=== PATIENT | male | born 1950 | race Caucasian/White ===

== ENCOUNTER 2024-06-19 20:37 | Inpatient (IN) | payer OTHER ==
[2024-06-19 21:12] LABS: Absolute Lymphocytes (CBC) 0.5 K/uL (0.7-4.9); Absolute Monocytes 0.6 K/uL (0.1-1.3); Absolute Neutrophil 5.3 K/uL (1.8-8.0); Basophils % 0.2 % (0-1.3); Hematocrit 40.4 % (39.6-49.0); Hemoglobin 13.4 g/dL (13.6-17.9); Lymphocytes % 7.5 % (15.3-44.8); MCH 30.7 pg (27.0-35.0); MCHC 33.1 g/dL (32.0-36.0); MCV 92.6 fL (80-100); MPV 9.7 fL (7.6-11.3); Neutrophils % 82.3 % (41.7-73.7); Nucleated Red Blood Cells % 0.2 % (0-0); Platelets 124 thou/uL (152-406); RBC Red Blood Cell Count 4.37 M/uL (4.33-5.43); Red Cell Distribution Width 13.4 % (12.1-15.2)
[2024-06-19 21:26] LABS: PT Prothrombin Time 14.7 SECONDS (9.4-12.5); PTT, Activated Partial Thromb 31.6 SECONDS (24.3-36.9); Protime INR 1.32
[2024-06-19 21:29] LABS: Albumin 3.2 g/dL (3.4-5.0); Albumin/Globulin Ratio 0.8 (1.1-1.8); Anion Gap 10.5 mEq/L (5.0-15.0); Bilirubin Total 0.8 mg/dL (0.2-1.0); Globulin 3.8 g/dL (2.3-3.5); Potassium 3.5 mEq/L (3.5-5.1)
[2024-06-19 21:47] LABS: SARS-CoV-2 Antigen CONTROL BLUE LINE VIS/BG OK; SARS-CoV-2 Antigen Rapid Res Negative (Negative)
--- NOTE | 2024-06-19 21:52 | RAD REPORT ---
[facility]23 [facility] CLINICAL HISTORY: fevr COMPARISON: CHEST SINGLE VIEW dated 09/05/2009 TECHNIQUE: Portable AP view of the chest. FINDINGS: The lungs are clear. Elevation of the left hemidiaphragm again seen. No pneumothorax or ef fusion. The cardiomediastinal contours are unremarkable. IMPRESSION: No acute cardiopulmonary process.
[2024-06-19] MEDS ORDERED: VANCOMYCIN 1 GM/VIAL ONE (22:14)
--- NOTE | 2024-06-19 22:14 | ER ---
Nurse's Notes [facility] Name: Roverto Holly Age: 74 yrs Sex: Male : 1950 Arrival Date: 06/19/2024 Time: 20:37 Bed 4 Private MD: Adam Brooks B Diagnosis: Cellulitis of right lower limb;Altered mental status, unspecified Presentation: 06/19 20:50 Chief complaint: Spouse and/or significant other states: increased confusion kl incontinent of urine right lower extremity swelling and redness. Coronavirus screen: Vaccine status: Patient reports being unvaccinated. Ebola Screen: Patient negative for fever greater than or equal to 101.5 degrees Fahrenheit, and additional compatible Ebola Virus Disease symptoms. Initial Sepsis Screen: Does the patient meet any 2 criteria? Altered Mental Status. Yes Does the patient have a suspected source of infection? If YES to both, name of provider notified: Boni Brandon MD. Risk Assessment: Do you want to hurt yourself or someone else? Patient reports no desire to harm self or others. Onset of symptoms is unknown. 20:50 Method Of Arrival: Ambulatory kl 20:50 Acuity: AKILAH 3 kl 20:55 Note code sepsis called. Triage Assessment: 20:53 General: Appears uncomfortable, unkempt, Behavior is calm, cooperative. EENT: No kl deficits noted. Derm: swelling and redness to right lower extremity. Historical: - Allergies: 20:53 PENICILLINS; kl - Home Meds: 20:53 donepezil oral [Active]; kl - PMHx: 20:53 Alzheimer's disease; Hypertensive disorder; Myocardial infarction; kl - PSHx: 20:53 None; kl - Immunization history:: Adult Immunizations not immunized. - Infectious Disease History:: Denies. - Social history:: Smoking status: Patient denies any tobacco usage or history of. - Family history:: not pertinent. - Hospitalizations: : No recent hospitalization is reported. Screenin:00 [facility] ED Fall Risk Assessment (Adult) History of falling in the last 3 months, al5 including since admission No falls in past 3 months (0 pts) Confusion or Disorientation Yes (5 pts) Intoxicated or Sedated No (0 pts) Impaired Gait Yes (1 pt) Mobility Assist Device Used Yes (1 pt) Altered Elimination Yes (1 pt) Score/Fall Risk Level 3 or more points = High Risk Oriented to surroundings, Maintained a safe environment, Educated pt \T\ family on fall prevention, incl call for assistance when getting out of bed, Assessed \T\ reinforced patient's understanding of fall precautions, Provided non-skid footwear, Hourly rounding (assess needs \T\ fall precautionary measures) done. Abuse screen: Denies threats or abuse. Nutritional screening: No deficits noted. Tuberculosis screening: No symptoms or risk factors identified. Assessment: 20:50 General: Appears in no apparent distress. comfortable, Behavior is calm, cooperative. al5 20:50 Pain: Denies pain. Neuro: Level of Consciousness is awake, alert, obeys commands, al5 Oriented to person, place. Cardiovascular: Denies chest pain, Capillary refill < 3 seconds Patient's skin is warm and dry. Respiratory: Airway is patent Trachea midline Respiratory effort is even, unlabored, Respiratory pattern is regular, symmetrical. GI: Abdomen is flat, non-distended, Abd is soft and non tender X 4 quads. : Reports incontinence. EENT: No deficits noted. Derm: Skin is intact, Skin is dry, Skin is normal, Skin temperature is warm. Musculoskeletal: Swelling present in right leg. 21:30 Reassessment: Patient and/or family updated on plan of care and expected duration. Pain rg5 level reassessed. Patient is alert, oriented x 3, equal unlabored respirations, skin warm/dry/pink. 22:30 Reassessment: No changes from previously documented assessment. rg5 23:45 Reassessment: No changes from previously documented assessment. rg5 Vital Signs: 20:50 BP 181 / 92; Pulse 88; Resp 18; Temp 100.6(O); Pulse Ox 95% on R/A; kl 21:00 BP 163 / 101; Pulse 79; Resp 19; Temp 100.1(O); Pulse Ox 100% on R/A; al5 23:35 BP 156 / 67; Pulse 78; Resp 18; Temp 98.4(O); Pulse Ox 99% ; Pain 0/10; rg5 23:35 Pain Scale: Adult rg5 ED Course: 20:38 Patient arrived in ED. am2 20:39 Adam Brooks MD is Private Physician. am2 20:41 Boni Brandon MD is Attending Physician. rn 20:53 Triage completed. kl 21:00 Awaiting lab results. al5 21:00 Patient has correct armband on for positive identification. Fall risk band placed. al5 Placed in gown. Bed in low position. Call light in reach. Side rails up X2. Adult w/ patient. 21:00 Arm band placed on right wrist. EKG completed in triage. Results shown to MD. rg5 21:00 No provider procedures requiring assistance completed. Inserted saline lock: 20 gauge al5 in right antecubital area, using aseptic technique. 21:00 Inserted saline lock: Blood collected. Flushed with 10 mL NS. al5 21:24 Chest Single View XRAY In Process Unspecified. EDMS 21:24 Misa Pedroza, RADHA is Primary Nurse. al5 22:12 Erasmo Fernandez MD is Hospitalizing Provider. rn 23:00 Awaiting bed assignment. rg5 06/20 00:11 Urinalysis w/ reflexes Sent. rg5 00:15 Flushed right antecubital saline lock Patient admitted, IV remains in place. intact, No rg5 redness/swelling at site. 00:16 Provided Education on: need for admit. rg5 Administered Medications: 06/19 22:15 Drug: vancoMYCIN IVPB 1 grams IVPB once over 2 hrs Route: IVPB; Infused Over: 2 hrs; al5 Site: right antecubital; 06/20 00:00 Follow up: Response: No adverse reaction; IV Status: Completed infusion rg5 Medication: 06/19 21:00 VIS not applicable for this client. al5 Outcome: 22:13 Decision to Hospitalize by Provider. rn 06/20 00:16 Admitted to Med/surg accompanied by nurse, via stretcher, rg5 Condition: stable Instructed on the need for admit, 01:02 Patient left the ED. ha1 Signatures: Dispatcher [employer] EDMS Mita Donaldson RN RN kl Nieto, Roman, MD MD rn Moreno, Amanda am2 Millicent Yo RN RN ha1 Luis Enrique York RN RN rgMisa Sibley RN RN al
--- NOTE | 2024-06-19 22:14 | EDPHYS ---
Physician Documentation [facility] Name: Roverto Holly Age: 74 yrs Sex: Male : 1950 Arrival Date: 06/19/2024 Time: 20:37 Bed 4 Private MD: Adam Brooks B ED Physician Boni Brandon HPI: 06/19 20:53 This 74 yrs old Male presents to ER via Ambulatory with complaints of confusion, rn Urinary Problem, Leg Swelling. 20:53 The patient presents with agitation, confusion, disorientation. Onset: The rn symptoms/episode began/occurred yesterday. Possible causes: unknown. Current symptoms: In the emergency department the patient's symptoms are unchanged from the initial presentation. The patient has not experienced similar symptoms in the past. Family member reports altered mental status, fever, red right lower extremity. Has had bouts of cellulitis in the past. No known trauma. Patient is exhibiting disorientation and agitation. No head injury.. Historical: - Allergies: 20:53 PENICILLINS; kl - Home Meds: 20:53 donepezil oral [Active]; kl - PMHx: 20:53 Alzheimer's disease; Hypertensive disorder; Myocardial infarction; kl - PSHx: 20:53 None; kl - Immunization history:: Adult Immunizations not immunized. - Infectious Disease History:: Denies. - Social history:: Smoking status: Patient denies any tobacco usage or history of. - Family history:: not pertinent. - Hospitalizations: : No recent hospitalization is reported. ROS: 20:53 Constitutional: Positive for fever Eyes: Negative for injury, pain, redness, and rn referral, Cardiovascular: Negative for chest pain, palpitations, and edema, Respiratory: Negative for shortness of breath, cough, wheezing, and pleuritic chest pain, Abdomen/GI: Negative for abdominal pain, nausea, vomiting, diarrhea, and constipation, : Positive for increase in urination MS/Extremity: Negative for injury and deformity, Skin: Positive for erythema and warmth to the right lower extremity Neuro: Negative for headache, weakness, numbness, tingling, and seizure, Exam: 20:53 Constitutional: This is a well developed, well nourished patient who is awake, alert, rn and in no acute distress. Head/Face: Normocephalic, atraumatic. ENT: Dry mucous membranes Cardiovascular: Regular rate and rhythm. No pulse deficits. Respiratory: No increased work of breathing, no retractions or nasal flaring. Abdomen/GI: Soft, non-tender MS/ Extremity: No cyanosis. Right lower extremity with erythema and warmth that begins at the right foot and extends just proximal to the right knee. No fluctuance. No desquamation. Neuro: Awake and alert, GCS 15, oriented to person, place, not time. Cranial nerves II-XII grossly intact. Motor strength 4/5 in all extremities. Sensory grossly intact. 21:07 ECG was reviewed by the Attending Physician. rn Vital Signs: 20:50 BP 181 / 92; Pulse 88; Resp 18; Temp 100.6(O); Pulse Ox 95% on R/A; kl 21:00 BP 163 / 101; Pulse 79; Resp 19; Temp 100.1(O); Pulse Ox 100% on R/A; al5 23:35 BP 156 / 67; Pulse 78; Resp 18; Temp 98.4(O); Pulse Ox 99% ; Pain 0/10; rg5 23:35 Pain Scale: Adult rg5 MDM: 20:41 Patient medically screened. rn 22:11 Differential Diagnosis: electrolyte abnormality, hypoglycemia, pneumonia, UTI, volume rn depletion, cellulitis. Data reviewed: vital signs, nurses notes, lab test result(s), radiologic studies, plain films, and as a result, I will admit patient. Consideration of Admission/Observation Patient was admitted/placed on observation. Escalation of care including admission/observation considered. Independent interpretation of the following test(s) in the Emergency Department EKG: See my EKG interpretation above X-Ray: My interpretation is Chest x-ray images negative for pneumonia per my interpretation. Care significantly affected by the following chronic conditions: Hypertension. Counseling: I had a detailed discussion with the patient and/or guardian regarding the historical points, exam findings, and any diagnostic results supporting the discharge/admit diagnosis, lab results, radiology results, the need for further work-up and treatment in the hospital. ED course: Patient with altered mental status, most likely due to cellulitis. Does not meet severe sepsis criteria. Lactic acid normal. Antibiotics ordered. Will admit to hospitalist service for cellulitis and altered mental status.. 06/19 20:51 Order name: Blood Culture Adult (2) rn 06/19 20:51 Order name: CBC with Diff; Complete Time: 22: rn 06/19 20:51 Order name: CMP; Complete Time: 22: rn 06/19 20:51 Order name: Lactate w/ 2H reflex if indic.; Complete Time: 22:06/19 20:51 Order name: Protime (+inr); Complete Time: 22: 06/19 20:51 Order name: Ptt, Activated; Complete Time: 22: rn 06/19 20:51 Order name: Urinalysis w/ reflexes rn 06/19 20:51 Order name: SARS RAPID; Complete Time: 22: rn 06/19 20:51 Order name: Flu; Complete Time: 22: rn 06/19 22:51 Order name: Urinalysis w/ reflexes EDMS 06/19 22:52 Order name: CBC with Automated Diff EDMS 06/19 22:52 Order name: CBC with Automated Diff EDMS 06/19 22:52 Order name: Comprehensive Metabolic Panel EDOH 06/19 22:52 Order name: Comprehensive Metabolic Panel [facility] 06/19 20:51 Order name: Chest Single View XRAY; Complete Time: 22:06/19 20:51 Order name: Accucheck; Complete Time: 21:06/19 20:51 Order name: Cardiac monitoring; Complete Time: 21:06/19 20:51 Order name: EKG - Nurse/Tech; Complete Time: 21:06/19 20:51 Order name: IV Saline Lock - Large Bore; Complete Time: 21:24 06/19 20:51 Order name: Labs collected and sent; Complete Time: 21:06/19 20:51 Order name: O2 Per Protocol; Complete Time: 21:06/19 20:51 Order name: O2 Sat Monitoring; Complete Time: 21:06/19 20:51 Order name: Vital Signs; Complete Time: 21:24 rn EC: Rate is 92 beats/min. Rhythm is irregular. Right axis deviation noted. QRS is positive rn in lead aVF and negative in lead I. QRS interval is prolonged. QT interval is normal. No Q waves. T waves are Normal. No ST changes noted. Clinical impression: NSR w/ Non-specific ST/T Changes. Interpreted by me. Reviewed by me. Administered Medications: 22:15 Drug: vancoMYCIN IVPB 1 grams IVPB once over 2 hrs Route: IVPB; Infused Over: 2 hrs; al5 Site: right antecubital; 06/20 00:00 Follow up: Response: No adverse reaction; IV Status: Completed infusion rg5 Disposition Summary: 06/19/24 22:13 Hospitalization Ordered Notes: Hospitalization Status: Inpatient Admission rn Provider: Erasmo Fernandez rn Location: Telemetry/MedSurg (Inpatient) rn Condition: Stable rn Problem: new rn Symptoms: have improved rn Bed/Room Type: Standard rn Room Assignment: 231(06/19/24 23:37) kl Diagnosis - Cellulitis of right lower limb rn - Altered mental status, unspecified rn Forms: - Medication Reconciliation Form rn - SBAR form rn - Leadership Thank You Letter rn Signatures: Dispatcher [employer] EDMS Mita Donaldson RN RN kl Nieto, Roman, MD MD rn Langhorst, Amanda, RN RN alLuis Enrique Jansen RN rg5 Corrections: (The following items were deleted from the chart) 06/19 20:52 20:52 BLOOD CULTURE*+BA.LAB.BRZ ordered. EDMS EDMS 20:52 20:52 CBC+H.LAB.BRZ ordered. EDMS EDMS 20:52 20:52 COMPREHENSIVE METABOLIC PANEL+C.LAB.BRZ ordered. EDMS EDMS 20:52 20:52 LACTATE+C.LAB.BRZ ordered. EDMS EDMS 20:52 20:52 PROTIME (+INR)+COAG.LAB.BRZ ordered. EDMS EDMS 20:52 20:52 PTT, ACTIVATED+COAG.LAB.BRZ ordered. EDMS EDMS 20:52 20:52 Urinalysis+U.LAB.BRZ ordered. EDMS EDMS 20:52 20:52 SARS-COV-2 Antigen Rapid+I.LAB.BRZ ordered. EDMS EDMS 20:52 20:52 Influenza Screen (A \T\ B)+BA.LAB.BRZ ordered. EDMS EDMS 20:52 20:52 Chest Single View+RAD.RAD.BRZ ordered. EDOH EDMS 23:37 22:13 sunni mancilla
[2024-06-19] MEDS ORDERED: NA CHLORIDE 0.9% 250 ML ONE (22:15)
--- NOTE | 2024-06-19 22:45 | P.HP ---
Certification for Inpatient Patient admitted to: Observation With expected LOS: <2 Midnights Practitioner: I am a practitioner with admitting privileges, knowledge of patient current condition, hospital course, and medical plan of care. Services: Services provided to patient in accordance with Admission requirements found in Title 42 Section 412.3 of the Code of Federal Regulations Patient History Date of Service: 06/20/24 Reason for admission: AMS/leg swelling History of Present Illness: 74 yrs old Male with past medical history of dementia, hypertension, CAD who was brought to ER with confusion and leg swelling and dysuria started yesterday and has been progressively worsening and was brought to ER. Patient had some agitation and confusion. Patient is a poor historian hence most of the history is obtained from the chart review and also talking to the ER physician. Family reported that he was having some confusion and some low-grade fever and red right lower extremity similar to his previous episodes of cellulitis in the past. Denies any trauma. No chest pain or shortness of breath. of cellulitis in the past. No known trauma. Patient is exhibiting disorie ntation and confusion. Patient was assessed in the ER and is admitted for altered mental status and right lower extremity cellulitis Allergies Penicillins Allergy (Unverified 06/20/24 01:17) unknown Home medications list reviewed: Yes - Past Medical/Surgical History Diabetic: Yes Past Medical History: Reviewed- Non-Contributory Past Surgical History: Reviewed- Non-Contributory - Family History Family History: Reviewed- Non-Contributory - Social History Smoking Status: Never smoker Review of Systems 10-point ROS is otherwise unremarkable Physical Examination - Vital Signs Temperature: 100.6 F Blood Pressure: 181/92 Pulse: 88 Respirations: 18 Pulse Ox (%): 94 - Physical Exam General: Alert, Demented, Confused HEENT: Atraumatic, Normocephalic Neck: Supple Respiratory: Clear to auscultation bilaterally, Normal air movement Cardiovascular: Regular rate/rhythm, Normal S1 S2 Capillary refill: <2 Seconds Gastrointestinal: Soft and benign, W/out hepatosplenomegaly Musculoskeletal: Erythema, Tenderness Integumentary: No rashes, Tenderness/swelling, Erythema Neurological: Normal strength at 5/5 x4 extr, Cranial nerves 3-12 intact, Normal reflexes 2+, Other (Alert, confused) Lymphatics: No axilla or inguinal lymphadenopathy - Studies Laboratory Data (last 24 hrs) 06/19/24 06/19/24 06/19/24 21:00 21:00 21:00 WBC 6.40 Hgb 13.4 L Hct 40.4 Plt Count 124 L PT 14.7 H INR 1.32 APTT 31.6 Sodium 132 L Potassium 3.5 BUN 21 H Creatinine 1.26 Glucose 141 H Total Bilirubin 0.8 AST 43 H ALT 44 Alkaline Phosphatase 108 Microbiology Data (last 24 hrs): 06/19/24 21:00 Nasopharnyx Influenza Type A Antigen Screen - Final 06/19/24 21:00 Nasopharnyx Influenza Type B Antigen Screen - Final Assessment and Plan - Problems (Diagnosis) (1) Acute encephalopathy Current Visit: Yes Status: Acute Plan: Acute encephalopathy possibly metabolic Patient has baseline dementia Possibly sundowning too Monitor neuro vital signs closely Will get a CT of the head if patient is still confused Dementia Continue home medications and titrate as needed Supportive management Right lower extremity cellulitis Started on antibiotics Will obtain cultures Accelerated hypertension Hydralazine as needed Continue home medications and titrate as needed Hyponatremia IV hydration Monitor closely UA negative for any UTI GI/DVT prophylaxis Advanced directive full code Discharge Plan: Home Plan to discharge in: 48 Hours - Advance Directives Does patient have a Living Will: No Does patient have a Durable POA for Healthcare: No - Code Status/Comfort Care Code Status: Full Code Time Spent Managing Pts Care (In Minutes): 48
[2024-06-19] MEDS ORDERED: ACETAMINOPHEN 325 MG TABLET PO PRN (22:46)
[2024-06-19] MEDS ORDERED: ONDANSETRON 4 MG/2 ML VIAL IV PRN (22:46)
[2024-06-19] MEDS ORDERED: NA CHLORIDE 0.9% 1,000 ML IV SCH (23:00)
[2024-06-20 00:53] LABS: Sqamous Epithelial <5 /HPF (None Seen); Urine Bacteria None Seen /HPF (<20); Urine Bilirubin NEGATIVE (Negative); Urine Blood 1+ (Negative); Urine Clarity Clear (Clear); Urine Color Yellow (Yellow); Urine Culture Reflex Order NOT NEEDED; Urine Glucose NEGATIVE (Negative); Urine Ketones 1+ (Negative); Urine Microscopic Reflex YN ORDER UMIC; Urine Mucus Slight /HPF (None Seen); Urine Nitrite NEGATIVE (Negative); Urine Protein 1+ (Negative); Urine RBC <5 /HPF (None Seen); Urine Urobilinogen 1+ (Normal); Urine WBC <5 /HPF (<5)
[2024-06-20 02:26] VITALS: BMI 23.5
[2024-06-20] MEDS ORDERED: HYDRALAZINE HCL 20 MG/ML VIAL IV PRN (05:27)
[2024-06-20 06:14] LABS: Absolute Lymphocytes (CBC) 0.6 K/uL (0.7-4.9); Absolute Monocytes 0.5 K/uL (0.1-1.3); Basophils % 0.2 % (0-1.3); Hemoglobin 12.7 g/dL (13.6-17.9); Lymphocytes % 12.6 % (15.3-44.8); MCH 31.4 pg (27.0-35.0); MCHC 34.4 g/dL (32.0-36.0); MCV 91.3 fL (80-100); MPV 10.1 fL (7.6-11.3); Monocytes % 9.7 % (3.3-12.3); Neutrophils % 77.5 % (41.7-73.7); Nucleated Red Blood Cells % 0.1 % (0-0); Platelets 114 thou/uL (152-406); RBC Red Blood Cell Count 4.05 M/uL (4.33-5.43); Red Cell Distribution Width 13.5 % (12.1-15.2)
[2024-06-20 06:26] LABS: Albumin 2.6 g/dL (3.4-5.0); Albumin/Globulin Ratio 0.7 (1.1-1.8); Anion Gap 11.2 mEq/L (5.0-15.0); Bilirubin Total 0.8 mg/dL (0.2-1.0); Globulin 3.6 g/dL (2.3-3.5); Potassium 3.2 mEq/L (3.5-5.1); Protein, Total 6.2 g/dL (6.4-8.2)
[2024-06-20] MEDS: CIPROFLOXACIN HCL 500 MG TAB PO SCH (08:47)
[2024-06-20] MEDS: DOXYCYCLINE 100 MG CAP PO SCH (08:47)
[2024-06-20] MEDS: POTASSIUM CL SA 10 MEQ TAB PO ONE (08:47)
--- NOTE | 2024-06-20 09:54 | RAD REPORT ---
EXAM DESCRIPTION: CT - Head Brain Wo Cont - 06/20/2024 8:09 am CLINICAL HISTORY: AMS COMPARISON: No comparisons TECHNIQUE: Noncontrast head CT images were obtained without IV contrast. Multiplanar reformats were generated and reviewed. All CT scans are performed using dose optimization technique as appropriate and may include automated exposure control or mA/KV adjustment according to patient size. FINDINGS: No intracranial hemorrhage, mass, or edema. Midline structures are unremarkable. Normal ventricular caliber for age. Mars-white matter differentiation is preserved, without evidence of acute infarct. No abnormal extra- axial fluid collections. Mastoid air cells are well aerated. Moderate paranasal sinus mucosal thickening along the maxillary s inuses. No acute bony findings. IMPRESSION: No evidence of an acute intracranial process.
--- NOTE | 2024-06-20 14:25 | P.PN ---
Subjective Date of Service: 06/20/24 Chief Complaint: AMS/leg swelling Patient is awake and interactive. No change in right lower extremity swelling mild redness. No recorded fever. Physical Examination - Vital Signs Temperature: 98.8 F Blood Pressure: 141/68 Pulse: 80 Respirations: 16 Pulse Ox (%): 96 - Studies Laboratory Data (last 24 hrs) 06/19/24 06/19/24 06/19/24 21:00 21:00 21:00 WBC 6.40 Hgb 13.4 L Hct 40.4 Plt Count 124 L PT 14.7 H INR 1.32 APTT 31.6 Sodium 132 L Potassium 3.5 BUN 21 H Creatinine 1.26 Glucose 141 H Total Bilirubin 0.8 AST 43 H ALT 44 Alkaline Phosphatase 108 Microbiology Data (last 24 hrs): 06/19/24 21:00 Nasopharnyx Influenza Type A Antigen Screen - Final 06/19/24 21:00 Nasopharnyx Influenza Type B Antigen Screen - Final Assessment And Plan - Plan Physical examination General: Alert and oriented x 2, NAD, HEENT: Conjunctiva not pale, anicteric sclera Neck: Supple, no elevated JVD Heart: Heart sounds 1 and 2 normal, regular rhythm, normal rate, no pedal edema Lungs: Clear to auscultation bilaterally, adequate breath sounds bilaterally, no rhonchi or crackles. Abdomen: Soft, nondistended, nontender, normal bowel sounds. Extremities: Right leg, swollen up to the knee with circumferential erythema, pitting edema. Skin: Erythema-right leg, no ulcer. Neuro: No focal motor deficit. Normal speech. Psychiatry: Normal mood, no agitation. Assessment and plan Metabolic encephalopathy Dementia Head CT is negative Patient has baseline dementia Neurocheck Will get a CT of the head if patient is still confused Right lower extremity cellulitis and lymphedema. Right lower extremity erythema is probably related to lymphedema. Continue current antibiotics. Keep right lower extremity elevated. Follow blood cultures Accelerated hypertension Hydralazine as needed Continue home medications and titrate as needed Hyponatremia Stable IV hydration Monitor BMP. Thrombocytopenia/Anemia Stable Monitor CBC DVT prophylaxis: Heparin SQ Advanced directive full code
[2024-06-20] MEDS: Levofloxacin 750mg IV 750 MG/150 ML BAG IV SCH (15:45)
[2024-06-20] MEDS: FUROSEMIDE 40 MG/4 ML VIAL IV SCH (17:03)
[2024-06-20] MEDS: HEPARIN 5000 UNIT/ML 1 ML VIAL SQ SCH (17:03)
[2024-06-20] MEDS: VANCOMYCIN 1.5 GM in NA CHLORIDE 0.9% 500 ML IVPB SCH (17:03)
--- NOTE | 2024-06-21 12:31 | EKG ---
Test Date: 2024-06-19 Test Time: 20:57:48 Patient Coordinator: AF MEASUREMENT RESULTS: Intervals: Rate: 92 NE: 130 QRSD: 134 QT: 372 QTc: 460 [place]: P: 61 NE: 130 QRS: 168 T: 16 INTERPRETIVE STATEMENTS: Sinus rhythm with premature atrial complexes Right bundle branch block Left posterior fascicular block Bifascicular block Abnormal ECG Compared to ECG 09/07/2009 05:22:29 Atrial premature complex(es) now present Right bundle-branch block now present Left posterior fascicular block now present Bifascicular block now present Sinus bradycardia no longer present Electronically Signed On 06-21-24 12:30:15 CDT by Damaso Parikh
--- NOTE | 2024-06-21 15:01 | P.PN ---
Subjective Date of Service: 06/21/24 Chief Complaint: AMS/leg swelling Patient is awake and alert and appears to be at baseline. Right lower extremity redness slightly improved. No recorded fever. Physical Examination - Vital Signs Temperature: 98.3 F Blood Pressure: 141/65 Pulse: 73 Respirations: 15 Pulse Ox (%): 97 Assessment And Plan - Plan Physical examination General: Alert and oriented x 2, NAD, HEENT: anicteric sclera Neck: Supple, no elevated JVD Heart: Heart sounds 1 and 2 normal, regular rhythm, normal rate, no pedal edema Lungs: Clear to auscultation bilaterally, adequate breath sounds bilaterally, no rhonchi or crackles. Abdomen: Soft, nondistended, nontender, normal bowel sounds. Extremities: Right leg, swollen up to the knee with circumferential erythema, pitting edema-erythema and swelling slightly improved. Skin: Erythema-right leg, no ulcer. Neuro: No focal motor deficit. Normal speech. Psychiatry: Normal mood, no agitation. Assessment and plan Metabolic encephalopathy Dementia Head CT is negative Patient has baseline dementia Neurochecks Resume Aricept. Right lower extremity cellulitis and lymphedema. Right lower extremity erythema is probably related to lymphedema. Slightly improved. Continue current antibiotics. Keep right lower extremity elevated. Blood cultures shows no growth to date. Accelerated hypertension Hydralazine as needed Continue home medications. Hyponatremia Stable Patient is on IV Lasix for lower extremity lymphedema/edema Monitor BMP. Thrombocytopenia/Anemia Lymphocytosis Stable Monitor CBC DVT prophylaxis: Heparin SQ Advanced directive full code
[2024-06-21] MEDS: POTASSIUM CL SA 10 MEQ TAB PO ONE (17:53)
[2024-06-21] MEDS: MAGNESIUM OXIDE 400 MG TAB PO SCH (20:51)
[2024-06-22 05:46] LABS: Absolute Lymphocytes (CBC) 1.3 K/uL (0.7-4.9); Basophils % 0.4 % (0-1.3); Eosinophils % 0.4 % (0-4.4); Hematocrit 41.6 % (39.6-49.0); Hemoglobin 13.8 g/dL (13.6-17.9); Lymphocytes % 19.9 % (15.3-44.8); MCH 30.7 pg (27.0-35.0); MCHC 33.1 g/dL (32.0-36.0); MCV 92.7 fL (80-100); Monocytes % 16.1 % (3.3-12.3); Neutrophils % 63.2 % (41.7-73.7); Nucleated Red Blood Cells % 0.1 % (0-0); Platelets 124 thou/uL (152-406); RBC Red Blood Cell Count 4.49 M/uL (4.33-5.43); Red Cell Distribution Width 13.7 % (12.1-15.2)
[2024-06-22 05:59] LABS: Anion Gap 6.5 mEq/L (5.0-15.0); Magnesium 1.9 mg/dL (1.6-2.4); Potassium 3.5 mEq/L (3.5-5.1)
--- NOTE | 2024-06-22 08:02 | RAD REPORT ---
EXAM DESCRIPTION: CT - Abdomen Pelvis Wo Contrast - 06/22/2024 6:25 am CLINICAL HISTORY: Abdominal pain. Hematuria COMPARISON: No comparisons TECHNIQUE: CT imaging of the abdomen and pelvis was performed without contrast. Solid organ, bowel a nd vascular assessment is limited due to lack of IV and oral contrast. All CT scans are performed using dose optimization technique as appropriate and may include automated exposure control or mA/KV adjustment according to patient size. FINDINGS: The lower lung yoder are clear.Elevated left hemidiaphragm. The liver, spleen, pancreas, adrenal glands and kidneys are within normal limits for a limited non-co ntrast examination. No tract stones are visualized. Cholelithiasis suspected. There is very significant distention of the sigmoid colon present in an inverted U shaped projecting into the left upper quadrant. This pattern is suggestive of sigmoid volvulus. No free air. No intra-a bdominal fluid or abscess. The appendix is normal. Prostate gland is mildly enlarged and projects in to the urinary bladder base. Moderate multilevel degenerative change of the lumbar spine. IMPRESSION: Significantly distended sigmoid colon projecting into the left upper quadrant suggestive of sigmoid volvulus. Followup colonoscopy may be of value. Cholelithiasis. Mild prostate enlargement projecting in the urinary bladder base. A limited non-contrast examination was performed as detailed.
--- NOTE | 2024-06-22 08:44 | P.PN ---
Date of Service: 06/22/24 Subjective: right lower extremity swelling and erythema seems improved compared to few days ago per family reports some mild swelling at home prior to this episode but never this bad, not erythematous denies abdominal pain. states had BM today, states she is unsure and not 100% confident in his recollection at this time denies bloody urine this morning - voided minutes prior to my assessment ROS: 10 point ROS as noted above, otherwise negative Physical Exam: GEN: awake, oriented x2, NAD, dementia HEENT: Normal conjunctiva, sclera anicteric CV: regular rate and rhythm, RLE: 2+ edema to knee, trace to 1+ LLE to above ankle Pulm: Nonlabored respirations on room air, clear bilaterally ABD: Soft, nontender, nondistended Integumentary: right lower extremity swelling up to the knee with circumferential erythema, pitting edema-erythema Neuro: Normal speech, normal affect vitals reviewed Problem List: Metabolic encephalopathy Dementia Right lower extremity cellulitis and lymphedema Incidental finding - Sigmoid volvulus SVT hx CAD s/p PCI Accelerated hypertension Hyponatremia, improving Thrombocytopenia/Anemia Lymphocytosis Metabolic encephalopathy Dementia unclear exact etiology Head CT (06/20): negative for any acute findings. CXR negative. Patient has baseline dementia Monitor on telemetry continue home Aricept. continue supportive care Right lower extremity cellulitis and lymphedema. Right lower extremity erythema and edema, possibly related to lymphedema denies chronic swelling Continue empiric levaquin / vanc (06/20-) afebrile since 06/20 Keep right lower extremity elevated. Blood cx (06/19): NGTD continue IV lasix 40 mg BID for now monitor UOP Slightly improved. check CRP - trend Incidental finding - Sigmoid volvulus CT abdomen (06/22): Significantly distended sigmoid colon projecting into the left upper quadrant suggestive of sigmoid volvulus. Cholelithiasis. Mildly enlarged prostate projecting in uninary bladder base. denies abdominal complaints, uncertain when last had BM Dr. Espinoza, general surgeon consulted advised liquid diet and repeat KUB in AM, patient without any peritoneal signs / asymptomatic at this time SVT hx CAD s/p PCI reportedly had episode of NSVT 06/21; ?questionable a-fib 06/21. HR 70s currently and worsened with activity. Denies chest pain. cardiology reviewed telemetry - more consistent with SVT and PAT; unclear if a-fib or NSVT was detected. denies prior history of a-fib. Reports hx CAD with PCI many years ago. cardiology following Start metoprolol 25 mg BID per cardio on 06/22 evening echo ordered to eval EF / stenosis f/u outpatient for stress test Hematuria hematuria reported 06/21 heparin held yesterday d/t hematuria continue to monitor. Accelerated hypertension confirm home meds, restart as appropriate IV Hydralazine PRN for now Hyponatremia, improving monitor and replete elecrolytes as needed sodium improving Thrombocytopenia/Anemia Lymphocytosis Stable. Daily labs. VTE: heparin sq held overnight given hematuria Code: Full Dispo: Home Time Spent Managing Pts Care (In Minutes): 45
[2024-06-22] MEDS: DONEPEZIL HCL 5 MG TAB PO SCH (09:32)
[2024-06-22] MEDS: POTASSIUM CL SA 10 MEQ TAB PO ONE (09:32)
--- NOTE | 2024-06-22 12:04 | P.CNS ---
Date of Consult: 06/22/24 Chief Complaint: AMS/leg swelling History of Present Illness: Patient with PMH of CAD s/p PCI long time ago, presented with right lower extremity cellulitis and altered mental status, patient is very sedentary per , he sits and watch TV most of the day, denies chest pain, no palpitations, no dizzy spells, no syncope. Allergies Penicillins Allergy (Mild, Verified 06/20/24 11:42) unknown Home Medications: Donepezil HCl [Aricept] 10 mg PO DAILY 06/20/24 - Past Medical/Surgical History Diabetic: Yes - Social History Alcohol use: No CD- Drugs: No Caffeine use: Yes Place of Residence: Home Review of Systems 10-point ROS is otherwise unremarkable Physical Examination Temp Pulse Resp BP Pulse Ox 98.4 F 66 16 115/61 98 06/22/24 08:00 06/22/24 08:00 06/22/24 08:00 06/22/24 08:00 06/22/24 08:00 General: Alert, In no apparent distress HEENT: Atraumatic, PERRLA, Mucous membr. moist/pink, EOMI, Sclerae nonicteric Neck: Supple, 2+ carotid pulse no bruit, No LAD, Without JVD or thyroid abnormality Respiratory: Clear to auscultation bilaterally, Normal air movement Cardiovascular: Regular rate/rhythm, Normal S1 S2 Gastrointestinal: Normal bowel sounds, No tenderness Musculoskeletal: Swelling (right lower extremity), Erythema, Tenderness, Warmth Integumentary: No rashes Neurological: Normal gait, Normal speech, Normal tone, Normal affect Lymphatics: No axilla or inguinal lymphadenopathy - Problems (1) SVT (supraventricular tachycardia) Current Visit: Yes Status: Acute Plan: we were consulted for possible AF and NSVT, telemetery was reviewed and looks like patient having runs of SVT and PAT, unclear if AF was detected or the NSVT - continue to monitor on tele. - start Lopressor 25 mg po BID - get echo (2) CAD (coronary artery disease) Current Visit: Yes Status: Acute Plan: no chest pain, - ASA 81 mg daily - Crestor 20 mg daily - outpatient stress test. (3) HTN (hypertension) Current Visit: Yes Status: Acute Plan: metoprolol 25 mg po BID patient doesnt look like having signs of volume overload, switch lasix to 40 mg o daily
--- NOTE | 2024-06-22 14:31 | P.CNS ---
Date of Consult: 06/22/24 PC: I was asked to see this patient is in regards to a sigmoid volvulus. HPC: Patient admitted for hematuria, during his workup a CT scan was ordered. It demonstrates a large sigmoid volvulus. The patient however appears to be unaffected by it. He does have mild dementia. Denies any abdominal pain, has been eating a regular diet. PMHx: Coronary artery disease Social Hx: Allergic to penicillin Sys R: No other complaints, lives with his O/E: Awake alert comfortable HEENT: Within normal limits Chest: Chest movement equal bilaterally Abd: Nontender, no guarding or rebound, not markedly distended [place]: Intact Data: White cell count normal, CT scan does show significant dilation of the sigmoid colon with a diagnosis of possible volvulus Impression: Possible sigmoid volvulus, not in crisis at the moment Plan: Consult GI, encourage patient to ambulate, will repeat KUB in a.m. as well as repeat exam. Should his condition change, always will reassess him immediately.
[2024-06-22] MEDS: METOPROLOL TAR 25 MG TAB PO SCH (16:16)
[2024-06-23 05:54] LABS: Absolute Basophils 0.1 K/uL (0-0.5); Absolute Eosinophils 0.1 K/uL (0-0.5); Absolute Lymphocytes (CBC) 1.8 K/uL (0.7-4.9); Absolute Monocytes 0.7 K/uL (0.1-1.3); Absolute Neutrophil 4.1 K/uL (1.8-8.0); Basophils % 0.9 % (0-1.3); Eosinophils % 0.9 % (0-4.4); Hematocrit 40.7 % (39.6-49.0); Hemoglobin 13.7 g/dL (13.6-17.9); MCH 30.8 pg (27.0-35.0); MCHC 33.6 g/dL (32.0-36.0); MCV 91.7 fL (80-100); MPV 9.9 fL (7.6-11.3); Monocytes % 10.9 % (3.3-12.3); Neutrophils % 60.3 % (41.7-73.7); Nucleated Red Blood Cells % 0.4 % (0-0); Platelets 196 thou/uL (152-406); RBC Red Blood Cell Count 4.44 M/uL (4.33-5.43); Red Cell Distribution Width 13.7 % (12.1-15.2)
[2024-06-23 06:07] LABS: Albumin 2.6 g/dL (3.4-5.0); Albumin/Globulin Ratio 0.7 (1.1-1.8); Anion Gap 7.3 mEq/L (5.0-15.0); Bilirubin Total 0.6 mg/dL (0.2-1.0); C-Reactive Protein 70.3 mg/L (<3.00); Globulin 3.9 g/dL (2.3-3.5); Magnesium 2.2 mg/dL (1.6-2.4); Potassium 3.3 mEq/L (3.5-5.1); Protein, Total 6.5 g/dL (6.4-8.2)
--- NOTE | 2024-06-23 08:34 | RAD REPORT ---
EXAM DESCRIPTION: RAD - Abdomen 1 View (KUB) - 06/23/2024 5:37 am CLINICAL HISTORY: f/u colon distention / volvulus COMPARISON: Abdomen Pelvis Wo Contrast dated 06/22/2024 TECHNIQUE: Single AP view of the abdomen. FINDINGS: Marked distention of the sigmoid is again seen. . No air-fluid levels, free air, or pneuma tosis. Moderate stool burden predominantly of the ascending colon No suspicious calcifications. No significant bony abnormality. IMPRESSION: Persistent marked distention of the sigmoid colon.
--- NOTE | 2024-06-23 08:42 | ECHO ---
HEIGHT: 6 ft 0 in WEIGHT: 173 lb 3.2 oz DATE OF STUDY: 06/22/[address]: Sukhwinder Salguero MD 2-DIMENSIONAL: YES M.MODE: YES DOPPLER: YES COLOR FLOW: YES TDS: YES PORTABLE: YES DEFINITY: BUBBLE STUDY: DIAGNOSIS: NON SUSTAINED VENTRICULAR TACHYCARDIA CARDIAC HISTORY: CATHERIZATION: YES SURGERY: NO PROSTHETIC VALVE: NO PACEMAKER: NO MEASUREMENTS (cm) DIASTOLIC (NORMALS) SYSTOLIC (NORMALS) IVSd (0.6-1.2) LA Diam (1.9-4.0) LVEF % LVIDd (3.5-5.7) LVIDs (2.0-3.5) %FS % LVPWd (0.6-1.2) Ao Diam (2.0-3.7) 2 DIMENSIONAL ASSESSMENT: RIGHT ATRIUM: NOT SEEN LEFT ATRIUM: NOT SEEN RIGHT VENTRICLE: NOT SEEN LEFT VENTRICLE: NORMAL TRICUSPID VALVE: NOT SEEN MITRAL VALVE: NOT SEEN PULMONIC VALVE: NOT SEEN AORTIC VALVE: NOT SEEN PERICARDIAL EFFUSION: NONE AORTIC ROOT: NOT SEEN LEFT VENTRICULAR WALL MOTION: NORMAL DOPPLER/COLOR FLOW: DIASTOLIC DYSFUNCTION COMMENTS: 1. LIMITED VIEWS 2. NORMAL LEFT VENTRICULAR SYSTOLIC FUNCTION, EJECTION FRACTION 55%, CAN NOT ASSESS WALL MOTION 3. DIASTOLIC DYSFUNCTION TECHNOLOGIST: SABA SCHWAB
[2024-06-23] MEDS: POTASSIUM CL SA 10 MEQ TAB PO ONE (09:32)
[2024-06-23] MEDS: FUROSEMIDE 40 MG TABLET PO SCH (09:32)
[2024-06-23] MEDS: VANCOMYCIN 1.5 GM in NA CHLORIDE 0.9% 500 ML IVPB SCH (09:33)
--- NOTE | 2024-06-23 10:29 | P.PN ---
Date of Service: 06/23/24 Subjective: feeling better today lower extremity edema and erythema both improving daily Denies bloody urine afebrile unsure if has had a BM ROS: 10 point ROS as noted above, otherwise negative Physical Exam: GEN: awake, oriented x2, NAD, dementia HEENT: Normal conjunctiva, sclera anicteric CV: regular rate and rhythm, RLE: 1+ edema to knee Pulm: Nonlabored respirations on room air, clear bilaterally ABD: Soft, nontender, nondistended Integumentary: RLE swelling up to the knee with circumferential erythema Neuro: Normal speech, normal affect vitals reviewed Problem List: Right lower extremity cellulitis and lymphedema Metabolic encephalopathy Dementia Incidental finding - Sigmoid volvulus SVT hx CAD s/p PCI Hematuria, improving Accelerated hypertension Hyponatremia, improving Thrombocytopenia/Anemia Lymphocytosis Right lower extremity cellulitis and lymphedema. Right lower extremity erythema and edema, possibly related to lymphedema. Denies chronic swelling Continue empiric levaquin / vanc (06/20-) afebrile since 06/20, no leukocytosis Blood cx (06/19): NGTD continue lasix 40 mg BID; deescalated to PO from IV 06/23 monitor UOP Keep right lower extremity elevated. improving daily, still quite extensive CRP improving Metabolic encephalopathy Dementia unclear exact etiology / encephalopathy vs delirium Head CT (06/20): negative for any acute findings. CXR negative. Patient has baseline dementia Monitor on telemetry continue home Aricept. continue supportive care Incidental finding - Sigmoid volvulus CT abdomen (06/22): Significantly distended sigmoid colon projecting into the left upper quadrant suggestive of sigmoid volvulus. Cholelithiasis. Mildly enlarged prostate projecting in uninary bladder base. KUB (06/23): persistent marked distention of sigmoid colon denies abdominal complaints, uncertain when last had BM Dr. Espinoza, general surgeon consulted full liquid diet for now trial of mineral oil PO today SVT hx CAD s/p PCI reportedly had episode of NSVT 06/21; Denies chest pain. cardiology reviewed telemetry - more consistent with SVT and PAT; unclear if a-fib or NSVT was detected. no further episodes denies prior history of a-fib. Reports hx CAD with PCI many years ago. cardiology following continue metoprolol 25 mg BID; started 06/22 evening per cardio echo (06/22): limited study. normal EF 55%, Diastolic dysfunction unable to access wall motion. f/u outpatient for stress test Hematuria, improving hematuria reported 06/21 patient/family denies further episodes of hematuria continue to monitor. Accelerated hypertension confirm home meds, restart as appropriate IV Hydralazine PRN for now Hyponatremia, improving monitor and replete elecrolytes as needed sodium improving Thrombocytopenia/Anemia Lymphocytosis Stable. Daily labs. VTE: heparin sq Code: Full Dispo: Home Time Spent Managing Pts Care (In Minutes): 45
--- NOTE | 2024-06-23 10:55 | P.PN ---
Subjective Date of Service: 06/23/24 Chief Complaint: AMS/leg swelling Subjective: No new changes, No C/O voiced, Tolerating diet, Ambulating, Improving Review of Systems 10-point ROS is otherwise unremarkable Physical Examination - Vital Signs Temperature: 97.2 F Blood Pressure: 118/60 Pulse: 59 Respirations: 15 Pulse Ox (%): 98 - Physical Exam General: Alert, In no apparent distress HEENT: Atraumatic, PERRLA, EOMI Neck: Supple, JVD not distended Respiratory: Clear to auscultation bilaterally, Normal air movement Cardiovascular: Regular rate/rhythm, Normal S1 S2 Gastrointestinal: Normal bowel sounds, No tenderness Musculoskeletal: No tenderness Integumentary: No rashes Neurological: Normal speech, Normal tone, Normal affect Lymphatics: No axilla or inguinal lymphadenopathy - Studies Medications List Reviewed: Yes Assessment And Plan - Current Problems (Diagnosis) (1) SVT (supraventricular tachycardia) Current Visit: Yes Status: Acute Plan: Telemtery overnight was reviewed and no significant arrhythmia - continue to monitor on tele. - continue Lopressor 25 mg po BID - Echo, poor images but normal EF. (2) CAD (coronary artery disease) Current Visit: Yes Status: Acute Plan: no chest pain, - ASA 81 mg daily - Crestor 20 mg daily - outpatient stress test. (3) HTN (hypertension) Current Visit: Yes Status: Acute Plan: metoprolol 25 mg po BID continue lasix 40 mg daily cardiology will sign off, please call with any questions
[2024-06-23] MEDS: MINERAL OIL 30 ML UCUP PO ONE (13:35)
[2024-06-24 08:19] LABS: Absolute Eosinophils 0.1 K/uL (0-0.5); Absolute Lymphocytes (CBC) 1.5 K/uL (0.7-4.9); Absolute Monocytes 0.7 K/uL (0.1-1.3); Absolute Neutrophil 3.8 K/uL (1.8-8.0); Basophils % 0.7 % (0-1.3); Eosinophils % 1.3 % (0-4.4); Hematocrit 37.3 % (39.6-49.0); Hemoglobin 12.4 g/dL (13.6-17.9); Lymphocytes % 24.6 % (15.3-44.8); MCH 30.9 pg (27.0-35.0); MCHC 33.4 g/dL (32.0-36.0); MCV 92.6 fL (80-100); MPV 9.7 fL (7.6-11.3); Monocytes % 11.5 % (3.3-12.3); Neutrophils % 61.9 % (41.7-73.7); Platelets 195 thou/uL (152-406); RBC Red Blood Cell Count 4.02 M/uL (4.33-5.43); Red Cell Distribution Width 13.8 % (12.1-15.2)
[2024-06-24 08:31] LABS: Anion Gap 5.8 mEq/L (5.0-15.0); C-Reactive Protein 45.8 mg/L (<3.00); Magnesium 2.2 mg/dL (1.6-2.4); Potassium 3.8 mEq/L (3.5-5.1)
--- NOTE | 2024-06-24 08:31 | RAD REPORT ---
EXAM DESCRIPTION: RAD - Abdomen 1 View (KUB) - 06/24/2024 7:48 am CLINICAL HISTORY: f/u volvulus COMPARISON: Abdomen 1 View (KUB) dated 06/23/2024 TECHNIQUE: Single AP view of the abdomen. FINDINGS: Mild improved gaseous distention of the sigmoid in the central abdomen, measuring up to 15 .4 cm in caliber. Nonobstructive small bowel gas pattern. No air-fluid levels, free air, or pneumatos is. No suspicious calcifications. No significant bony abnormality. IMPRESSION: Mild interval improvement of sigmoid colon gaseous distension.
--- NOTE | 2024-06-24 09:22 | P.PN ---
Date of Service: 06/24/24 Subjective: Doing okay. doesn't feel any worse. lower extremity edema and erythema continues to improve daily family thinks he's had some BM but unsure size/consistency. Flushing before anyone can see denies any new / worsening problems afebrile ROS: 10 point ROS as noted above, otherwise negative Physical Exam: GEN: awake, oriented x2, NAD, dementia HEENT: Normal conjunctiva, sclera anicteric CV: regular rate and rhythm, RLE: 1+ edema to knee Pulm: Nonlabored respirations on room air, clear bilaterally ABD: Soft, nontender, nondistended Integumentary: RLE swelling up to the knee with circumferential erythema - less bright red and starting to have areas clearing, 2+ pedal edema Neuro: Normal speech, normal affect vitals reviewed Problem List: Right lower extremity cellulitis and lymphedema Metabolic encephalopathy Dementia Incidental finding - Sigmoid volvulus SVT hx CAD s/p PCI Hematuria, resolved Accelerated hypertension Hyponatremia, improving Thrombocytopenia/Anemia Lymphocytosis Right lower extremity cellulitis and lymphedema. Right lower extremity erythema and edema, possibly related to lymphedema. Denies chronic swelling iv levaquin/vanc started on admission de-escalate to PO levaquin/doxy 06/24 h/o penicillin allergy afebrile since 06/20, no leukocytosis Blood cx (06/19): NGTD continue lasix 40 mg daily; deescalated to PO from IV (06/23), and further from BID to daily (06/24) Keep right lower extremity elevated. improving daily, still quite extensive CRP improving Metabolic encephalopathy Dementia unclear exact etiology / encephalopathy vs delirium Head CT (06/20): negative for any acute findings. CXR negative. Patient has baseline dementia Monitor on telemetry continue home Aricept. continue supportive care Incidental finding - Sigmoid volvulus CT abdomen (06/22): Significantly distended sigmoid colon projecting into the left upper quadrant suggestive of sigmoid volvulus. Cholelithiasis. Mildly enlarged prostate projecting in uninary bladder base. repeat KUB (06/24): mild interval improvement of distention of sigmoid colon denies abdominal complaints, uncertain when last had BM Dr. Espinoza, general surgeon consulted full liquid diet for now s/p mineral oil x1 PO (06/23) SVT hx CAD s/p PCI reportedly had episode of SVT 7/29; Denies chest pain. no further episodes denies prior history of a-fib. Reports hx CAD with PCI many years ago. cardiology following continue metoprolol 25 mg BID; started 06/22 evening per cardio echo (06/22): limited study. normal EF 55%, Diastolic dysfunction unable to access wall motion. f/u outpatient for stress test Hematuria, resolved hematuria reported 06/21 patient/family denies further episodes of hematuria 06/23 continue to monitor. Accelerated hypertension confirm home meds, restart as appropriate IV Hydralazine PRN for now Hyponatremia, improving monitor and replete elecrolytes as needed sodium improving Thrombocytopenia/Anemia Lymphocytosis Stable. Daily labs. VTE: heparin sq Code: Full Dispo: Home, possibly tomorrow Time Spent Managing Pts Care (In Minutes): 30
[2024-06-24] MEDS: DOXYCYCLINE 100 MG CAP PO SCH (11:46)
[2024-06-24] MEDS: levoFLOXacin 750 MG TAB PO SCH (11:47)
--- NOTE | 2024-06-24 14:44 | P.PN ---
Date of Service: 06/24/24 S: Patient has no specific complaints, when asked how he is he says he feels better. [This note was dictated after I had seen the patient and advised him to ambulate. Currently walking up and down the hallway in no distress. O: Vital signs are stable, physical exam shows abdomen is a lot less distended today soft and supple no mass effect noted no guarding or rebound. A: Patient is clinically much improved. P: Advance diet, encourage patient to ambulate, will reassess in a.m. and hopefully discharge soon.
[2024-06-25 07:04] LABS: Absolute Basophils 0.1 K/uL (0-0.5); Absolute Eosinophils 0.1 K/uL (0-0.5); Absolute Lymphocytes (CBC) 1.8 K/uL (0.7-4.9); Absolute Monocytes 0.7 K/uL (0.1-1.3); Absolute Neutrophil 4.9 K/uL (1.8-8.0); Basophils % 1.2 % (0-1.3); Eosinophils % 1.7 % (0-4.4); Hematocrit 39.8 % (39.6-49.0); Hemoglobin 13.1 g/dL (13.6-17.9); Lymphocytes % 23.8 % (15.3-44.8); MCH 30.5 pg (27.0-35.0); MCHC 32.8 g/dL (32.0-36.0); MCV 92.8 fL (80-100); MPV 9.1 fL (7.6-11.3); Monocytes % 9.2 % (3.3-12.3); Neutrophils % 64.1 % (41.7-73.7); Platelets 264 thou/uL (152-406); RBC Red Blood Cell Count 4.29 M/uL (4.33-5.43); Red Cell Distribution Width 14.1 % (12.1-15.2)
[2024-06-25 08:55] VITALS: O2SAT 100
--- NOTE | 2024-06-25 10:53 | P.PN ---
Date of Service: 06/25/24 Subjective: Doing okay. doesn't feel any worse. lower extremity edema and erythema continues to improve daily family thinks he's had some BM but unsure size/consistency. Flushing before anyone can see denies any new / worsening problems afebrile ROS: 10 point ROS as noted above, otherwise negative Physical Exam: GEN: awake, oriented x2, NAD, dementia HEENT: Normal conjunctiva, sclera anicteric CV: regular rate and rhythm, RLE: trace-1+ edema to knee Pulm: Nonlabored respirations on room air, clear bilaterally ABD: Soft, nontender, nondistended Integumentary: RLE swelling up to the knee with circumferential erythema - less bright red and starting to have areas clearing, 2+ pedal edema Neuro: Normal speech, normal affect vitals reviewed Problem List: Right lower extremity cellulitis and lymphedema Metabolic encephalopathy Dementia Incidental finding - Sigmoid volvulus SVT hx CAD s/p PCI Hematuria, resolved Accelerated hypertension Hyponatremia, improving Thrombocytopenia/Anemia Lymphocytosis Right lower extremity cellulitis and lymphedema. Right lower extremity erythema and edema, possibly related to lymphedema. Denies chronic swelling iv levaquin/vanc started on admission de-escalate to PO levaquin/doxy (06/24) will complete 2 weeks total abx (end date: ~07/03/24) h/o penicillin allergy afebrile since 06/20, no leukocytosis Blood cx (06/19): NGTD continue lasix 40 mg daily; deescalated to PO from IV (06/23), and further from BID to daily (06/24) Keep right lower extremity elevated. improving daily CRP improving Metabolic encephalopathy Dementia unclear exact etiology / encephalopathy vs delirium Head CT (06/20): negative for any acute findings. CXR negative. Patient has baseline dementia Monitor on telemetry continue home Aricept. continue supportive care Incidental finding - Sigmoid volvulus CT abdomen (06/22): Significantly distended sigmoid colon projecting into the left upper quadrant suggestive of sigmoid volvulus. Cholelithiasis. Mildly enlarged prostate projecting in uninary bladder base. repeat KUB (06/24): mild interval improvement of distention of sigmoid colon denies abdominal complaints, uncertain when last had BM Dr. Espinoza, general surgeon consulted full liquid diet for now s/p mineral oil x1 PO (06/23) SVT hx CAD s/p PCI reportedly had episode of SVT 06/21; Denies chest pain. no further episodes denies prior history of a-fib. Reports hx CAD with PCI many years ago. cardiology following continue metoprolol 25 mg BID; started 06/22 evening per cardio echo (06/22): limited study. normal EF 55%, Diastolic dysfunction unable to access wall motion. f/u outpatient for stress test Hematuria, resolved hematuria reported 06/21 patient/family denies further episodes of hematuria 06/23 continue to monitor. Accelerated hypertension confirm home meds, restart as appropriate IV Hydralazine PRN for now Hyponatremia, improving monitor and replete elecrolytes as needed sodium improving Thrombocytopenia/Anemia Lymphocytosis Stable. Daily labs. VTE: heparin sq Code: Full Dispo: Home Time Spent Managing Pts Care (In Minutes): 30
--- NOTE | 2024-06-25 14:31 | P.PN ---
Date of Service: 06/25/24 Patient has been up ambulating, tolerating a diet. said he appears to be much improved. Abdomen is soft not distended, looks well today apparently ate lunch Patient can be discharged today. Recommend follow-up with GI, discussed with . Will try to get social media specialist to order home health etc. for him. He will most likely be discharged today or tomorrow.
[2024-06-25 17:07] VITALS: BP 146/65; TEMP 97.1
--- NOTE | 2024-06-26 06:54 | P.DS ---
Admission Date: 06/19/24 Discharge Date: 06/26/24 Disposition: ROUTINE DISCHARGE Discharge Condition: GOOD Reason for Admission: AMS/leg swelling Consultations: Cardiology - Dr. Tucker Brief History of Present Illness: 74yo M, PMH: dementia, hypertension, CAD Patient presented to ED with confusion and leg swelling and dysuria started yesterday and has been progressively worsening and was brought to ER. Patient had some agitation and confusion. Patient is a poor historian hence most of the history is obtained from the chart review and also talking to the ER physician. Family reported that he was having some confusion and some low-grade fever and red right lower extremity similar to his previous episodes of cellulitis in the past. Denies any trauma. No chest pain or shortness of breath. No known trauma. Patient is exhibiting disorientation and confusion. Patient was assessed in the ER and is admitted for altered mental status and right lower extremity cellulitis. Hospital Course: Problem List: Right lower extremity cellulitis and lymphedema Metabolic encephalopathy Dementia Incidental finding - Sigmoid volvulus SVT hx CAD s/p PCI Hematuria, resolved Accelerated hypertension Hyponatremia, improving Thrombocytopenia/Anemia Lymphocytosis Physician discharge instructions: Patient presented with worsening right lower extremity edema, erythema, confusion. Admitted for Right lower extremity cellulitis. Patient was given empiric IV levaquin and vancomycin in addition to IV lasix and had improvement of his symptoms. Blood cultures have been without growth since 06/19. He continued to improve with deescalating antibiotics to PO levaquin and doxycycline. Patient is to complete8 more days of levaquin and doxycycline on discharge for total of 2 week of antibiotic treatment. (end date: 07/03/24) Patient was feeling better, lower extremity edema and erythema improving, afebrile without leukocytosis, mentation ~baseline and was deemed stable for discharge. Incidentally seen on CT abdomen: Significantly distended sigmoid colon projecting into the left upper quadrant suggestive of sigmoid volvulus. Cholelithiasis. Mildly enlarged prostate projecting in uninary bladder base. Patient was without any abdominal pain / discomfort throughout hospitalization. Dr. Espinoza, general surgeon was consulted to eval and recommended medical management, bowel rest, mineral oil. Patient was asymptomatic and was uncertain if this has been chronic. Patient continued to tolerate diet without any issues, no abdominal distention. He was monitored over 3 days without any issue. Patient reported having bowel movements but not 100% certain given his dementia / memory impairment. Repeat KUB showed improvement in sigmoid colon distension. Dr. Espinoza recommended discharge home and patient and family were given return precautions. Advised to follow up with PCP for further discussion and consider follow up with GI for further evaluation. CT head was negative for any acute findings. CXR was clear of any infiltrate. He was restarted on his home aricept and his mentation improved close to his baseline with time. During his hospitalization, he was noted to have an episode of supraventricular tachycardia on 06/21. Patient was asymptomatic at the time without chest pain or shortness of breath. No further episodes. Cardiology was consulted and reviewed telemetry which confirmed SVT. Dr. Tucker recommending starting metoprolol and to follow up for stress test as outpatient in near future. Echocardiogram this hospitalization was a limited study but did note 55% EF, diastolic dysfunction. Was unable to evaluate wall motion. Medications: Levaquin daily for 9 more days (end date: 07/03/24) Doxycycline twice daily for 9 more days (end date: 07/03/24) Metoprolol 25 mg twice daily Furosemide 40mg daily Follow up: PCP 3-5 days Cardiology 1-2 weeks GI in a few weeks. Please call to schedule / confirm appointments Physical Exam: GEN: awake, oriented x2, NAD, dementia HEENT: Normal conjunctiva, sclera anicteric CV: regular rate and rhythm, RLE: trace edema to knee Pulm: Nonlabored respirations on room air, clear bilaterally ABD: Soft, nontender, nondistended Neuro: Normal speech, normal affect Vital Signs/Physical Exam: Temp Pulse Resp BP Pulse Ox 97.1 F 67 13 146/65 H 99 06/25/24 16:00 06/25/24 16:00 06/25/24 16:00 06/25/24 16:00 06/25/24 16:00 Laboratory Data at Discharge: WBC 7.70 thou/uL (4.3-10.9) 06/25/24 06:52 Hgb 13.1 g/dL (13.6-17.9) L 06/25/24 06:52 Hct 39.8 % (39.6-49.0) 06/25/24 06:52 Plt Count 264 thou/uL (152-406) D 06/25/24 06:52 PT 14.7 SECONDS (9.4-12.5) H 06/19/24 21:00 INR 1.32 06/19/24 21:00 APTT 31.6 SECONDS (24.3-36.9) 06/19/24 21:00 Sodium 135 mEq/L (136-145) L 06/25/24 06:52 Potassium 4.0 mEq/L (3.5-5.1) 06/25/24 06:52 BUN 19 mg/dL (7-18) H 06/25/24 06:52 Creatinine 1.36 mg/dL (0.70-1.30) H 06/25/24 06:52 Glucose 115 mg/dL (74-106) H 06/25/24 06:52 Magnesium 2.2 mg/dL (1.6-2.4) 06/24/24 08:03 Total Bilirubin 0.6 mg/dL (0.2-1.0) 06/23/24 05:35 AST 43 U/L (15-37) H 06/23/24 05:35 ALT 45 U/L (16-61) 06/23/24 05:35 Alkaline Phosphatase 98 U/L (45-117) 06/23/24 05:35 Home Medications: Donepezil HCl [Aricept] 10 mg PO DAILY 06/20/24 Doxycycline Hyclate 100 mg PO BID 8 Days #16 tab 06/25/24 Furosemide [Lasix*] 40 mg PO DAILY 30 Days #30 tab 06/25/24 Metoprolol Tartrate [Lopressor*] 25 mg PO BID 30 Days #60 tab 06/25/24 levoFLOXacin [Levaquin*] 750 mg PO DAILY 8 Days #8 tab 06/25/24 New Medications: Doxycycline Hyclate 100 mg PO BID 8 Days #16 tab Furosemide [Lasix*] 40 mg PO DAILY 30 Days #30 tab levoFLOXacin [Levaquin*] 750 mg PO DAILY 8 Days #8 tab Metoprolol Tartrate [Lopressor*] 25 mg PO BID 30 Days #60 tab Physician Discharge Instructions: Physician discharge instructions: Patient presented with worsening right lower extremity edema, erythema, confusion. Admitted for Right lower extremity cellulitis. Patient was given empiric IV levaquin and vancomycin in addition to IV lasix and had improvement of his symptoms. Blood cultures have been without growth since 06/19. He continued to improve with deescalating antibiotics to PO levaquin and doxycycline. Patient is to complete8 more days of levaquin and doxycycline on discharge for total of 2 week of antibiotic treatment. (end date: 07/03/24) Patient was feeling better, lower extremity edema and erythema improving, afebrile without leukocytosis, mentation ~baseline and was deemed stable for discharge. Incidentally seen on CT abdomen: Significantly distended sigmoid colon projecting into the left upper quadrant suggestive of sigmoid volvulus. Cholelithiasis. Mildly enlarged prostate projecting in uninary bladder base. Patient was without any abdominal pain / discomfort throughout hospitalization. Dr. Espinoza, general surgeon was consulted to eval and recommended medical management, bowel rest, mineral oil. Patient was asymptomatic and was uncertain if this has been chronic. Patient continued to tolerate diet without any issues, no abdominal distention. He was monitored over 3 days without any issue. Patient reported having bowel movements but not 100% certain given his dementia / memory impairment. Repeat KUB showed improvement in sigmoid colon distension. Dr. Espinoza recommended discharge home and patient and family were given return precautions. Advised to follow up with PCP for further discussion and consider follow up with GI for further evaluation. CT head was negative for any acute findings. CXR was clear of any infiltrate. He was restarted on his home aricept and his mentation improved close to his baseline with time. During his hospitalization, he was noted to have an episode of supraventricular tachycardia on 06/21. Patient was asymptomatic at the time without chest pain or shortness of breath. No further episodes. Cardiology was consulted and reviewed telemetry which confirmed SVT. Dr. Tucker recommending starting metoprolol and to follow up for stress test as outpatient in near future. Echocardiogram this hospitalization was a limited study but did note 55% EF, diastolic dysfunction. Was unable to evaluate wall motion. Medications: Levaquin daily for 9 more days (end date: 07/03/24) Doxycycline twice daily for 9 more days (end date: 07/03/24) Metoprolol 25 mg twice daily Furosemide 40mg daily Follow up: PCP 3-5 days Cardiology 1-2 weeks GI in a few weeks. Please call to schedule / confirm appointments Followup: Adam Brooks MD [Primary Care Provider] - Time spent managing pt's care (in minutes): 45
== END 2024-06-25 18:20 | disposition home health service (06) | DRG 602 ==
LOC: ER 20:37 → ERHOLD 22:46 → 2ND 06-20 00:08
PROVIDERS: ADMIT Family Medicine; ATTEND Hospitalist
DX: L03.115 Cellulitis of right lower limb (principal); G93.41 Metabolic encephalopathy; K56.2 Volvulus; F03.911 Unspecified dementia, unspecified severity, with agitation; E87.1 Hypo-osmolality and hyponatremia; I47.10 Supraventricular tachycardia, unspecified; I10 Essential (primary) hypertension; I89.0 Lymphedema, not elsewhere classified; D69.6 Thrombocytopenia, unspecified; D64.9 Anemia, unspecified; D72.820 Lymphocytosis (symptomatic); I25.2 Old myocardial infarction; I25.10 Atherosclerotic heart disease of native coronary artery without angina pectoris; R31.9 Hematuria, unspecified; Z88.0 Allergy status to penicillin; Z11.52 Encounter for screening for COVID-19
CPT/HCPCS: 36415; 70450; 71045; 74018; 74176; 80048; 80053; 80202; 81001; 83605; 83735; 85025; 85610; 85730; 86140; 87040; 87804; 87811; 93005; 93306; 94760; 96365; 96366; 99285; J1644; J1940; J7040; J7050

== ENCOUNTER 2024-09-06 20:17 | Emergency (ER) | payer OTHER ==
[2024-09-06 21:33] LABS: Absolute Basophils 0.1 K/uL (0-0.5); Absolute Eosinophils 0.2 K/uL (0-0.5); Absolute Lymphocytes (CBC) 1.4 K/uL (0.7-4.9); Absolute Monocytes 0.7 K/uL (0.1-1.3); Absolute Neutrophil 5.1 K/uL (1.8-8.0); Basophils % 0.8 % (0-1.3); Eosinophils % 2.2 % (0-4.4); Hematocrit 40.5 % (39.6-49.0); Hemoglobin 13.5 g/dL (13.6-17.9); Lymphocytes % 19.4 % (15.3-44.8); MCH 31.2 pg (27.0-35.0); MCHC 33.2 g/dL (32.0-36.0); MCV 94.1 fL (80-100); MPV 8.8 fL (7.6-11.3); Monocytes % 8.8 % (3.3-12.3); Neutrophils % 68.8 % (41.7-73.7); Nucleated Red Blood Cells % 0.1 % (0-0); Platelets 215 thou/uL (152-406); RBC Red Blood Cell Count 4.31 M/uL (4.33-5.43)
[2024-09-06 21:36] LABS: PT Prothrombin Time 11.4 SECONDS (9.4-12.5); PTT, Activated Partial Thromb 32.6 SECONDS (24.3-36.9); Protime INR 1.02
[2024-09-06 21:39] LABS: Albumin 3.5 g/dL (3.4-5.0); Albumin/Globulin Ratio 0.8 (1.1-1.8); Anion Gap 6.7 mEq/L (5.0-15.0); Bilirubin Total 0.4 mg/dL (0.2-1.0); Globulin 4.2 g/dL (2.3-3.5); Potassium 3.7 mEq/L (3.5-5.1); Protein, Total 7.7 g/dL (6.4-8.2)
--- NOTE | 2024-09-06 21:46 | RAD REPORT ---
EXAMINATION: Extrem Venous W Compress Seth CLINICAL INDICATION: [facility] MAIN Pain;Swelling Bed Name: 16 N TECHNIQUE: Complete bilateral duplex sonography of the BILATERAL lower extremity veins was performed. The examination included compression for vein patency, color Doppler imaging and flow augmentation in response to distal compression of the distal external iliac, common femoral, femoral, popliteal, t ibial, and great and small saphenous veins. COMPARISON: No prior exam. FINDINGS: Duplex sonography testing of the veins of the BILATERAL lower extremity was performed. Color flow angelica ging shows all veins to be compressible with [id number] color filling. Pulsatile and phasic flow is present within all lower extremity deep and superficial veins examined. IMPRESSION: There is no deep vein or superficial vein thrombosis.
[2024-09-06] MEDS ORDERED: NA CHLORIDE 0.9% 1,000 ML ONE (21:53)
[2024-09-06 22:11] LABS: Specific Gravity 1.012 (1.005-1.030); Sqamous Epithelial None Seen /HPF (None Seen); Urine Bacteria None Seen /HPF (<20); Urine Bilirubin NEGATIVE (Negative); Urine Blood Negative (Negative); Urine Clarity Clear (Clear); Urine Color Colorless (Yellow); Urine Culture Reflex Order NOT NEEDED; Urine Glucose NEGATIVE (Negative); Urine Ketones NEGATIVE (Negative); Urine Microscopic Reflex YN ORDER UMIC; Urine Mucus Slight /HPF (None Seen); Urine Nitrite NEGATIVE (Negative); Urine Protein NEGATIVE (Negative); Urine RBC <5 /HPF (None Seen); Urine Urobilinogen Normal (Normal); Urine WBC <5 /HPF (<5); Urine pH 5.5 (5.0-7.0)
[2024-09-06] MEDS ORDERED: CLINDAMYCIN 600MG/D5W 50 ML IV ONE (22:38)
--- NOTE | 2024-09-06 22:52 | ER ---
Nurse's Notes [facility] Name: Roverto Holly Age: 74 yrs Sex: Male : 1950 Arrival Date: 09/06/2024 Time: 20:17 Bed 16 Private MD: Diagnosis: Cellulitis of left lower limb;Cellulitis of right lower limb Presentation: 09/06 20:34 Chief complaint: Chief complaint: Spouse and/or significant other states: left leg tm6 cellulitis flaring up. Has alzheimers, but today it seemed worse. He just seems more confused today. 20:34 Coronavirus screen: Client denies travel out of the [place] in the last 14 days. Ebola tm6 Screen: Patient negative for fever greater than or equal to 101.5 degrees Fahrenheit, and additional compatible Ebola Virus Disease symptoms Patient denies exposure to infectious person. Patient denies travel to an Ebola-affected area in the 21 days before illness onset. No symptoms or risks identified at this time. Initial Sepsis Screen: Does the patient meet any 2 criteria? Altered Mental Status. Does the patient have a suspected source of infection? No. Patient's initial sepsis screen is negative. Risk Assessment: Do you want to hurt yourself or someone else? Patient reports no desire to harm self or others. Onset of symptoms was September 06, 2024. 20:34 Method Of Arrival: Ambulatory tm6 20:34 Acuity: AKILAH 3 tm6 Triage Assessment: 20:34 General: Appears in no apparent distress. Behavior is calm, cooperative. Pain: Denies tm6 pain. EENT: No signs and/or symptoms were reported regarding the EENT system. Neuro: Level of Consciousness is awake, alert, obeys commands, Oriented to person, place, baseline dementia. Cardiovascular: Patient's skin is warm and dry. Respiratory: Airway is patent Respiratory effort is even, unlabored, Respiratory pattern is regular, symmetrical. GI: No signs and/or symptoms were reported involving the gastrointestinal system. Abdomen is flat, non-distended. : No signs and/or symptoms were reported regarding the genitourinary system. Derm: Reports cellulitis on L leg. Musculoskeletal: No signs and/or symptoms reported regarding the musculoskeletal system. Historical: - Allergies: 20:34 PENICILLINS; tm6 - PMHx: 20:34 Alzheimer's disease; Hypertensive disorder; Myocardial infarction; tm6 - Immunization history:: Client reports having NOT received the Covid vaccine. - Infectious Disease History:: Denies. - Social history:: Smoking status: Patient denies any tobacco usage or history of. Patient/guardian denies using alcohol. Screenin:46 [facility] ED Fall Risk Assessment (Adult) History of falling in the last 3 months, me1 including since admission No falls in past 3 months (0 pts) Confusion or Disorientation No (0 pts) Intoxicated or Sedated No (0 pts) Impaired Gait No (0 pts) Mobility Assist Device Used No (0 pt) Altered Elimination No (0 pt) Score/Fall Risk Level 0 - 2 = Low Risk Maintained a safe environment, Provided non-skid footwear, Hourly rounding (assess needs \T\ fall precautionary measures) done. Abuse screen: Denies threats or abuse. Nutritional screening: No deficits noted. Tuberculosis screening: No symptoms or risk factors identified. Assessment: 20:46 General: Appears uncomfortable, well groomed, well developed, well nourished, Behavior me1 is calm, cooperative, appropriate for age, Reports bilateral lower legs are red, swollen and hot. Hx of cellulitis. Patient has Alzheimers but per is more confused than normal. Pain: Complains of pain in left leg and right leg. Pain: Pain does not radiate. Pain currently is 6 out of 10 on a pain scale. Quality of pain is described as aching, throbbing, Pain began gradually, Is continuous. Neuro: Level of Consciousness is awake, alert, obeys commands, Oriented to person, situation. Cardiovascular: Patient's skin is warm and dry. Respiratory: Airway is patent Respiratory effort is even, unlabored, Respiratory pattern is regular, symmetrical. GI: No signs and/or symptoms were reported involving the gastrointestinal system. : Reports. EENT: No signs and/or symptoms were reported regarding the EENT system. Derm: Skin temperature is hot Wound noted left leg and right leg Wound is red, hot and swollen. Musculoskeletal: Reports pain in left leg and right leg. Vital Signs: 20:33 Pulse 75; Resp 19; Temp 98(O); Pulse Ox 99% on R/A; Weight 79.38 kg; Height 6 ft. 0 in. tm6 ; Pain 0/10; 20:34 BP 163 / 87; MAP 108 mmHg; tm6 21:00 BP 168 / 98; Pulse 61; Resp 16; Pulse Ox 100% ; me1 22:00 BP 179 / 77; Pulse 66; Resp 15; Pulse Ox 99% ; me1 23:00 BP 169 / 83; Pulse 71; Resp 12; Temp 98.1; Pulse Ox 100% ; me1 20:33 Body Mass Index 23.73 (79.38 kg, 182.88 cm) tm6 20:33 Pain Scale: Adult tm6 ED Course: 20:27 Patient arrived in ED. jj6 20:28 Gerri Chua PA-C is PHCP. sb4 20:29 Ray Jones MD is Attending Physician. sb4 20:34 Arm band placed on right wrist. tm6 20:36 Triage completed. tm6 20:46 Jamilah Anderson, RADHA is Primary Nurse. me1 20:46 Patient has correct armband on for positive identification. Bed in low position. Call me1 light in reach. Side rails up X2. Provided Education on: POC. Verbalized understanding.. Client placed on continuous cardiac and pulse oximetry monitoring. NIBP monitoring applied. Pulse ox on. NIBP on. 20:46 dental appliance mechanic on. me1 20:46 No provider procedures requiring assistance completed. me1 21:00 First set of blood cultures drawn by me. oe 21:07 Inserted saline lock: 20 gauge in left antecubital area, using aseptic technique. Blood oe collected. Flushed with 10 mL NS. 21:16 CBC with Diff Sent. oe 21:16 CMP Sent. oe 21:16 Lactate w/ 2H reflex if indic. Sent. oe 21:16 Protime (+inr) Sent. oe 21:16 Ptt, Activated Sent. oe 21:20 Second set of blood cultures drawn by me. oe 21:43 Extrem Venous W Compression Seth US In Process Unspecified. EDMS 22:01 Urinalysis w/ reflexes Sent. me1 22:01 Urine collected: clean catch specimen, cloudy. me1 22:52 Wound Culture Sent. me1 23:21 IV discontinued, intact, bleeding controlled, No redness/swelling at site. Pressure me1 dressing applied. Administered Medications: 22:01 Drug: NS 0.9% IV 1000 ml IV at 1 bolus Per protocol; to be given as a bolus over 60 me1 minutes Route: IV; Rate: 1 bolus; Site: left antecubital; 23:13 Follow up: Response: No adverse reaction; IV Status: Completed infusion; IV Intake: me1 1000ml 22:52 Drug: Clindamycin IVPB 600 mg IVPB once over 30 mins; (mix in 50 mL) Route: IVPB; me1 Infused Over: 30 mins; Site: left antecubital; 23:12 Follow up: Response: No adverse reaction; IV Status: Completed infusion; IV Intake: [id number] Medication: 20:46 VIS not applicable for this client. me1 Intake: 23:12 IV: 50ml; Total: 50ml. me1 23:13 IV: 1000ml; Total: 1050ml. me1 Outcome: 22:52 Discharge ordered by . sb4 23:21 Discharged to home via wheelchair, with significant other, me1 23:21 Condition: stable 23:21 Discharge instructions given to patient, family, Instructed on discharge instructions, follow up and referral plans. medication usage, Demonstrated understanding of instructions, follow-up care, medications, Prescriptions given X 1, 23:33 Patient left the ED. me1 Signatures: Dispatcher [employer] EDMS Sameer Goodwin Jennifer [email or web address] Gerri Chua PAToney PA-C sb4 Jamilah Anderson RN RN me1 Negrita Theodore RN RN tm6 Corrections: (The following items were deleted from the chart) 20:36 20:34 Chief complaint: tm6 tm6
--- NOTE | 2024-09-06 22:52 | EDPHYS ---
Physician Documentation [facility] Name: Roverto Holly Age: 74 yrs Sex: Male : 1950 Arrival Date: 09/06/2024 Time: 20:17 Bed 16 Private MD: ED Physician Ray Jones HPI: 09/06 20:45 This 74 yrs old Male presents to ER via Ambulatory with complaints of Altered Mental sb4 Status. 20:47 reports history of Alzheimer's but has been worse today. She states he gets like sb4 this when he has infections. States she thinks he might have a UTI or possible cellulitis on his left lower extremity. States that he gets recurrent cellulitis on his legs. Denies any known fever. Patient has no complaints at this. Historical: - Allergies: 20:34 PENICILLINS; tm6 - PMHx: 20:34 Alzheimer's disease; Hypertensive disorder; Myocardial infarction; tm6 - Immunization history:: Client reports having NOT received the Covid vaccine. - Infectious Disease History:: Denies. - Social history:: Smoking status: Patient denies any tobacco usage or history of. Patient/guardian denies using alcohol. ROS: 20:47 Constitutional: Negative for fever, chills, and weight loss, sb4 20:47 Skin: Positive for cellulitis, erythema, of the right leg and left leg, 20:47 All other systems are negative, Exam: 20:47 Constitutional: This is a well developed, well nourished patient who is awake, alert, sb4 and in no acute distress. Head/Face: Normocephalic, atraumatic. Eyes: Extra-ocular motions intact. Periorbital areas with no swelling, redness, or edema. ENT: Mucous membranes moist. 20:47 Cardiovascular: Regular rate and rhythm with a normal S1 and S2. Respiratory: Lungs have equal breath sounds bilaterally, clear to auscultation and percussion. No rales, rhonchi or wheezes noted. No increased work of breathing, no retractions or nasal flaring. Abdomen/GI: Soft, non-tender, no distension. 20:47 Skin: cellulitis, that is moderate, on the left leg and right leg, Vital Signs: 20:33 Pulse 75; Resp 19; Temp 98(O); Pulse Ox 99% on R/A; Weight 79.38 kg; Height 6 ft. 0 in. tm6 ; Pain 0/10; 20:34 BP 163 / 87; MAP 108 mmHg; tm6 21:00 BP 168 / 98; Pulse 61; Resp 16; Pulse Ox 100% ; me1 22:00 BP 179 / 77; Pulse 66; Resp 15; Pulse Ox 99% ; me1 23:00 BP 169 / 83; Pulse 71; Resp 12; Temp 98.1; Pulse Ox 100% ; me1 20:33 Body Mass Index 23.73 (79.38 kg, 182.88 cm) tm6 20:33 Pain Scale: Adult tm6 MDM: 20:36 Medical Screening Exam initiated sb4 22:15 Data reviewed: vital signs, nurses notes, lab test result(s), radiologic studies, and sb4 as a result, I will discharge patient. Historians other than the Patient: Spouse/Significant Other: . Counseling: I had a detailed discussion with the patient and/or guardian regarding the historical points, exam findings, and any diagnostic results supporting the discharge/admit diagnosis, the presence of at least one elevated blood pressure reading (>120/80) during this emergency department visit, lab results, radiology results, to return to the emergency department if symptoms worsen or persist or if there are any questions or concerns that arise at home. 09/06 20:45 Order name: Blood Culture Adult (2) sb4 09/06 20:45 Order name: CBC with Diff; Complete Time: 21:39 sb4 09/06 20:45 Order name: CMP; Complete Time: 21:39 sb4 09/06 20:45 Order name: Lactate w/ 2H reflex if indic.; Complete Time: 21:40 sb4 09/06 20:45 Order name: Protime (+inr); Complete Time: 21:37 sb4 09/06 20:45 Order name: Ptt, Activated; Complete Time: 21:37 sb4 09/06 20:45 Order name: Urinalysis w/ reflexes; Complete Time: 22:12 sb4 09/06 22:27 Order name: Wound Culture sb4 09/06 20:45 Order name: Extrem Venous W Compression Seth US; Complete Time: 21:47 sb4 09/06 20:45 Order name: Cardiac monitoring; Complete Time: 21:24 sb4 09/06 20:45 Order name: IV Saline Lock - Large Bore; Complete Time: 21:16 sb4 09/06 20:45 Order name: Labs collected and sent; Complete Time: 21:16 sb4 09/06 20:45 Order name: O2 Per Protocol; Complete Time: 21:24 sb4 09/06 20:45 Order name: O2 Sat Monitoring; Complete Time: 21:24 sb4 09/06 20:45 Order name: Vital Signs; Complete Time: 21:24 sb4 Administered Medications: 22:01 Drug: NS 0.9% IV 1000 ml IV at 1 bolus Per protocol; to be given as a bolus over 60 me1 minutes Route: IV; Rate: 1 bolus; Site: left antecubital; 23:13 Follow up: Response: No adverse reaction; IV Status: Completed infusion; IV Intake: me1 1000ml 22:52 Drug: Clindamycin IVPB 600 mg IVPB once over 30 mins; (mix in 50 mL) Route: IVPB; me1 Infused Over: 30 mins; Site: left antecubital; 23:12 Follow up: Response: No adverse reaction; IV Status: Completed infusion; IV Intake: [id number] Disposition Summary: 09/06/24 22:52 Discharge Ordered Notes: Location: Home sb4 Problem: new sb4 Symptoms: have improved sb4 Condition: Stable sb4 Diagnosis - Cellulitis of left lower limb sb4 - Cellulitis of right lower limb sb4 Followup: sb4 - With: Emergency Department - When: As needed - Reason: Fever > 102 F, Worsening of condition Discharge Instructions: - Discharge Summary Sheet sb4 - Cellulitis, Adult sb4 Forms: - Antibiotic Education sb4 - Patient Portal Instructions sb4 - Leadership Thank You Letter sb4 Prescriptions: - Clindamycin HCl 300 mg Oral Capsule - take 1 capsule ORAL route every 6 hours for 10 days; 40 capsule; Refills: 0, sb4 Product Selection Permitted Signatures: Dispatcher [employer] Gerri Roldan PA-C PA-C sb4 Jamilah Anderson, RADHA RN me1 Negrita Theodore RN RN tm6 Corrections: (The following items were deleted from the chart) 20:46 20:46 BLOOD CULTURE*+BA.LAB.BRZ ordered. EDMS EDMS 20:46 20:46 CBC+H.LAB.BRZ ordered. EDMS EDMS 20:46 20:46 COMPREHENSIVE METABOLIC PANEL+C.LAB.BRZ ordered. EDMS EDMS 20:46 20:46 LACTATE+C.LAB.BRZ ordered. EDMS EDMS 20:46 20:46 PROTIME (+INR)+COAG.LAB.BRZ ordered. EDMS EDMS 20:46 20:46 PTT, ACTIVATED+COAG.LAB.BRZ ordered. EDMS EDMS 20:46 20:46 Urinalysis+U.LAB.BRZ ordered. EDMS EDMS 20:46 20:46 Extrem Venous W Compression Seth+US.RAD.BRZ ordered. EDMS EDMS
[2024-09-07 04:53] VITALS: BP 169/83; TEMP 98.1; O2SAT 100
== END 2024-09-06 23:33 | disposition home or self-care (01) ==
LOC: ER 20:17
DX: L03.116 Cellulitis of left lower limb (principal); L03.115 Cellulitis of right lower limb; I10 Essential (primary) hypertension; G30.9 Alzheimer's disease, unspecified; F02.80 Dementia in other diseases classified elsewhere, unspecified severity, without behavioral disturbance, psychotic disturbance, mood disturbance, and anxiety
CPT/HCPCS: 87040 ×2; 87070; 85025; 81001; 36415; 87205; 85610; 83605; 85730; 80053; 93970; J7030

== ENCOUNTER 2024-09-21 18:33 | Inpatient (IN) | payer OTHER ==
--- NOTE | 2024-09-21 20:33 | RAD REPORT ---
EXAMINATION: ONE VIEW CHEST XR CLINICAL INDICATION: Male, 74 years old.,SWELLING TECHNIQUE: Frontal chest projection is submitted. Examination is limited by patient positioning and t echnique. COMPARISON: 06/16/2024. FINDINGS: The lungs are well inflated and clear. Elevation of the left hemidiaphragm again seen. No pneumothorax or sizable effusion. The heart is normal in size. Mediastinal contours are unremarkab le. IMPRESSION: No acute intrathoracic abnormalities.
--- NOTE | 2024-09-21 21:00 | RAD REPORT ---
EXAMINATION: US LEFT LOWER EXTREMITY VENOUS DOPPLER CLINICAL INDICATION: [facility] MAIN left leg PAIN Bed Name: 20 N TECHNIQUE: Complete bilateral duplex sonography of the LEFT lower extremity veins was performed. The examination included compression for vein patency, color Doppler imaging and flow augmentation in response to distal compression of the distal external iliac, common femoral, femoral, popliteal, tibi al, and great and small saphenous veins. COMPARISON: No prior exam. FINDINGS: Duplex sonography testing of the veins of the LEFT lower extremity was performed. Color flow imaging shows all veins to be compressible with [id number] color filling. Pulsatile and phasic flow is present within all lower extremity deep and superficial veins examined. IMPRESSION: No evidence of deep venous thrombosis.
[2024-09-21 21:12] LABS: Specific Gravity 1.017 (1.005-1.030); Sqamous Epithelial <5 /HPF (None Seen); Urine Bacteria None Seen /HPF (<20); Urine Bilirubin NEGATIVE (Negative); Urine Blood Negative (Negative); Urine Clarity Clear (Clear); Urine Color Light-Yellow (Yellow); Urine Culture Reflex Order NOT NEEDED; Urine Glucose NEGATIVE (Negative); Urine Ketones NEGATIVE (Negative); Urine Microscopic Reflex YN ORDER UMIC; Urine Nitrite NEGATIVE (Negative); Urine Protein NEGATIVE (Negative); Urine RBC <5 /HPF (None Seen); Urine Urobilinogen Normal (Normal); Urine WBC <5 /HPF (<5)
[2024-09-21 21:12] LABS: Absolute Basophils 0.1 K/uL (0-0.5); Absolute Eosinophils 0.1 K/uL (0-0.5); Absolute Lymphocytes (CBC) 1.4 K/uL (0.7-4.9); Absolute Monocytes 0.6 K/uL (0.1-1.3); Absolute Neutrophil 5.5 K/uL (1.8-8.0); Basophils % 0.9 % (0-1.3); Eosinophils % 1.8 % (0-4.4); Hematocrit 42.7 % (39.6-49.0); Hemoglobin 14.1 g/dL (13.6-17.9); Lymphocytes % 17.8 % (15.3-44.8); MCH 31.3 pg (27.0-35.0); MCHC 32.9 g/dL (32.0-36.0); MCV 95.1 fL (80-100); MPV 9.5 fL (7.6-11.3); Monocytes % 7.9 % (3.3-12.3); Neutrophils % 71.6 % (41.7-73.7); Platelets 212 thou/uL (152-406); RBC Red Blood Cell Count 4.49 M/uL (4.33-5.43); Red Cell Distribution Width 13.6 % (12.1-15.2)
[2024-09-21 21:31] LABS: Albumin 3.5 g/dL (3.4-5.0); Albumin/Globulin Ratio 0.9 (1.1-1.8); Anion Gap 5.9 mEq/L (5.0-15.0); Bilirubin Total 0.4 mg/dL (0.2-1.0); Potassium 3.9 mEq/L (3.5-5.1); Protein, Total 7.5 g/dL (6.4-8.2)
[2024-09-21 21:42] LABS: PT Prothrombin Time 11.7 SECONDS (9.4-12.5); PTT, Activated Partial Thromb 34.2 SECONDS (24.3-36.9); Protime INR 1.05
--- NOTE | 2024-09-21 22:00 | EDPHYS ---
Physician Documentation [facility] Name: Roverto Holly Age: 74 yrs Sex: Male : 1950 Arrival Date: 09/21/2024 Time: 18:33 Bed 20 Private MD: Adam Brooks B ED Physician Minor Bryant HPI: 09/21 21:58 This 74 yrs old Male presents to ER via Ambulatory with complaints of Cellulitis. kb 21:58 Pt is a 74 year old male who presents for cellulitis of left lower extremity that kb started approx 3 weeks ago. states pt has completed 2 rounds of clindamycin with no improvement. PCP told them to come to the ER for IV antibiotics and admission. . Historical: - Allergies: 19:16 PENICILLINS; jb4 - PMHx: 19:16 Alzheimer's disease; Hypertensive disorder; Myocardial infarction; jb4 - PSHx: 19:16 None; jb4 - Immunization history:: Adult Immunizations not up to date. - Infectious Disease History:: Denies. - Social history:: Smoking status: Patient denies any tobacco usage or history of. ROS: 21:53 Constitutional: As per HPI kb Exam: 21:53 Constitutional: This is a well developed, well nourished patient who is awake, alert, kb and in no acute distress. Head/Face: Normocephalic, atraumatic. ENT: Moist Mucous membranes Cardiovascular: Regular rate Respiratory: Respirations even and unlabored. No increased work of breathing. Talking in full sentences MS/ Extremity: Pulses equal, no cyanosis. Neurovascular intact. Full, normal range of motion. Neuro: Awake and alert, GCS 15, oriented to person, place, time, and situation. 21:53 ECG was reviewed by the Attending Physician. 21:53 Skin: cellulitis, that is moderate, on the left [place], Vital Signs: 19:14 BP 212 / 88; Pulse 65; Resp 16; Temp 97.6(O); Pulse Ox 96% on R/A; Weight 81.65 kg (R); jb4 Height 6 ft. 0 in. ; 20:44 BP 182 / 81; Pulse 90; Resp 18; Pulse Ox 100% ; ar6 22:30 BP 167 / 79; Pulse 59; Resp 16; Pulse Ox 100% on R/A; jb4 23:30 BP 187 / 80; Pulse 58; Resp 16; Pulse Ox 100% on R/A; [facility] 09/22 01:02 BP 182 / 84; Pulse 59; Resp 16; Pulse Ox 100% on R/A; [facility] 09/21 19:14 Body Mass Index 24.41 (81.65 kg, 182.88 cm) [facility] MDM: 09/21 18:46 Medical Screening Exam initiated kb 21:54 Data reviewed: vital signs, nurses notes. kb 21:56 Differential diagnosis: cellulitis, DVT, abscess. Consideration of kb Admission/Observation Patient was admitted/placed on observation. Escalation of care including admission/observation considered. Management of patient was discussed with the following: Hospitalist: [facility] accepts pt for admission. Historians other than the Patient: Spouse/Significant Other: . Counseling: I had a detailed discussion with the patient and/or guardian regarding the historical points, exam findings, and any diagnostic results supporting the discharge/admit diagnosis, lab results, radiology results, the need for further work-up and treatment in the hospital. 09/21 19:41 Order name: Blood Culture Adult (2) kb 09/21 19:41 Order name: CBC with Diff; Complete Time: 21:19 kb 09/21 19:41 Order name: CMP; Complete Time: 21:32 kb 09/21 19:41 Order name: Lactate w/ 2H reflex if indic.; Complete Time: 21:32 kb 09/21 19:41 Order name: Protime (+inr); Complete Time: 21:46 kb 09/21 19:41 Order name: Ptt, Activated; Complete Time: 21:46 kb 09/21 19:41 Order name: Urinalysis w/ reflexes; Complete Time: 21:14 kb 09/22 00:12 Order name: Lactate w/ 2H reflex if indic. EDMS 09/22 00:12 Order name: Liver (Hepatic) Function EDMS 09/22 00:12 Order name: Magnesium EDMS 09/22 00:12 Order name: NT PRO-BNP EDMS 09/22 00:12 Order name: Phosphorus EDMS 09/22 00:12 Order name: Thyroid Stimulating Hormone EDMS 09/22 00:12 Order name: Urinalysis w/ reflexes EDMS 09/22 00:12 Order name: Lipid Profile EDMS 10/30 00:12 Order name: Lipid Profile EDGA 09/21 19:41 Order name: Chest Single View XRAY; Complete Time: 20:35 kb 09/21 19:41 Order name: US Extremity Venous Unilateral Ltd; Complete Time: 21:01 kb 09/21 19:41 Order name: EKG; Complete Time: 19:41 kb 09/21 19:41 Order name: Cardiac monitoring; Complete Time: 20:51 kb 09/21 19:41 Order name: EKG - Nurse/Tech; Complete Time: 21:18 kb 09/21 19:41 Order name: IV Saline Lock - Large Bore; Complete Time: 20:58 kb 09/21 19:41 Order name: Labs collected and sent; Complete Time: 20:58 kb 09/21 19:41 Order name: O2 Per Protocol; Complete Time: 20:51 kb 09/21 19:41 Order name: O2 Sat Monitoring; Complete Time: 20:51 kb 09/21 19:41 Order name: Vital Signs; Complete Time: 20:51 kb EC:53 Rate is 62 beats/min. Rhythm is regular. QRS [place] is Normal. [place] interval is normal at kb 148 msec. QRS interval is normal at 138 msec. QT interval is normal at 456 msec. Administered Medications: 22:28 Drug: vancoMYCIN IVPB 1 grams IVPB once over 2 hrs Route: IVPB; Infused Over: 2 hrs; jb4 Site: right antecubital; Disposition Summary: 09/21/24 22:00 Hospitalization Ordered Notes: Hospitalization Status: Inpatient Admission kb Provider: Omar Cohn Location: Telemetry/MedSurg (Inpatient) kb Condition: Stable kb Problem: an ongoing problem kb Symptoms: are unchanged kb Bed/Room Type: Standard Room Assignment: 220(09/22/24 00:17) Diagnosis - Cellulitis of left lower limb - failed outpatient treatment(09/21/24 22:00) kb Forms: - Medication Reconciliation Form kb - SBAR form kb - Leadership Thank You Letter kb Signatures: Dispatcher [employer] Ondina Lance FNP-C FNP-Francine Zacarias RN RN Juan F Zuniga RN RN jb4 Corrections: (The following items were deleted from the chart) 21:43 19:41 Accucheck ordered. kb ar6 22:00 22:00 Cellulitis of left lower limb kb kb 09/22 00:17 09/21 22:00 kb cg
--- NOTE | 2024-09-21 22:00 | ER ---
Nurse's Notes [facility] Name: Roverto Holly Age: 74 yrs Sex: Male : 1950 Arrival Date: 09/21/2024 Time: 18:33 Bed 20 Private MD: Adam Brooks B Diagnosis: Cellulitis of left lower limb-failed outpatient treatment Presentation: 09/21 19:14 Chief complaint: Spouse and/or significant other states: He is having a cellulitis jb4 flair up on his left lower leg and ankle. His told us to come in to get IV antibiotics. Coronavirus screen: At this time, the client does not indicate any symptoms associated with coronavirus-19. Ebola Screen: No symptoms or risks identified at this time. Initial Sepsis Screen: Does the patient meet any 2 criteria? No. Patient's initial sepsis screen is negative. Does the patient have a suspected source of infection? No. Patient's initial sepsis screen is negative. Risk Assessment: Do you want to hurt yourself or someone else? Patient reports no desire to harm self or others. Onset of symptoms was September 21, 2024. Transition of care: patient was not received from another setting of care. 19:14 Method Of Arrival: Ambulatory jb4 19:14 Acuity: AKILAH 3 jb4 Historical: - Allergies: 19:16 PENICILLINS; jb4 - PMHx: 19:16 Alzheimer's disease; Hypertensive disorder; Myocardial infarction; jb4 - PSHx: 19:16 None; jb4 - Immunization history:: Adult Immunizations not up to date. - Infectious Disease History:: Denies. - Social history:: Smoking status: Patient denies any tobacco usage or history of. Screenin:44 [facility] ED Fall Risk Assessment (Adult) History of falling in the last 3 months, ar6 including since admission No falls in past 3 months (0 pts) Confusion or Disorientation Yes (5 pts) Intoxicated or Sedated No (0 pts) Impaired Gait No (0 pts) Mobility Assist Device Used No (0 pt) Altered Elimination No (0 pt) Score/Fall Risk Level 3 or more points = High Risk Oriented to surroundings, Maintained a safe environment, Educated pt \T\ family on fall prevention, incl call for assistance when getting out of bed, Hourly rounding (assess needs \T\ fall precautionary measures) done. Abuse screen: Denies threats or abuse. Denies injuries from another. Nutritional screening: No deficits noted. Tuberculosis screening: No symptoms or risk factors identified. Assessment: 19:45 General: Appears in no apparent distress. comfortable, Behavior is calm, cooperative. ar6 Pain: Denies pain. Neuro: Level of Consciousness is awake, alert, obeys commands, pt. at bedside reports hx of alzheimers. Oriented to person, place, situation. Cardiovascular: Capillary refill < 3 seconds. Respiratory: Airway is patent. GI: Abdomen is round non-distended. GI: Abdomen is round non-distended. : No signs and/or symptoms were reported regarding the genitourinary system. EENT: Oral mucosa is moist. Derm: Skin is intact, swelling to BLE (feet/ankle) with redness Skin is dry, Skin is pink, warm \T\ dry. Musculoskeletal: No signs and/or symptoms reported regarding the musculoskeletal system. 22:00 Reassessment: Patient appears in no apparent distress at this time. Patient and/or jb4 family updated on plan of care and expected duration. Pain level reassessed. Patient is alert, oriented x 3, equal unlabored respirations, skin warm/dry/pink. Report received from Becky GARCIA. 23:00 Reassessment: Patient appears in no apparent distress at this time. Patient and/or jb4 family updated on plan of care and expected duration. Pain level reassessed. Patient is alert, oriented x 3, equal unlabored respirations, skin warm/dry/pink. 09/22 00:00 Reassessment: Patient appears in no apparent distress at this time. Patient and/or jb4 family updated on plan of care and expected duration. Pain level reassessed. Patient is alert, oriented x 3, equal unlabored respirations, skin warm/dry/pink. 01:01 Reassessment: Patient appears in no apparent distress at this time. Patient and/or jb4 family updated on plan of care and expected duration. Pain level reassessed. Patient is alert, oriented x 3, equal unlabored respirations, skin warm/dry/pink. Spoke with hospitalist. Informed them pt's current b/p is 182/84 and has been trending high. Pt not complaining of any symptoms. No new orders at this time. Vital Signs: 09/21 19:14 BP 212 / 88; Pulse 65; Resp 16; Temp 97.6(O); Pulse Ox 96% on R/A; Weight 81.65 kg (R); jb4 Height 6 ft. 0 in. ; 20:44 BP 182 / 81; Pulse 90; Resp 18; Pulse Ox 100% ; ar6 22:30 BP 167 / 79; Pulse 59; Resp 16; Pulse Ox 100% on R/A; jb4 23:30 BP 187 / 80; Pulse 58; Resp 16; Pulse Ox 100% on R/A; jb4 09/22 01:02 BP 182 / 84; Pulse 59; Resp 16; Pulse Ox 100% on R/A; jb4 09/21 19:14 Body Mass Index 24.41 (81.65 kg, 182.88 cm) jb4 ED Course: 09/21 18:34 Patient arrived in ED. as 18:34 Adam Brooks MD is Private Physician. as 18:46 Ondina Stuart FNP-C is [facility]. kb 18:46 Minor Bryant MD is Attending Physician. kb 19:16 Triage completed. jb4 19:16 Arm band placed on right wrist. jb4 19:21 Becky Parker, RN is Primary Nurse. ar6 20:06 Chest Single View XRAY In Process Unspecified. EDMS 20:19 US Extremity Venous Unilateral Ltd In Process Unspecified. EDMS 20:44 Patient has correct armband on for positive identification. Bed in low position. Call ar6 light in reach. Side rails up X2. pt. at bedside. Provided Education on: plan of care. Client placed on continuous cardiac and pulse oximetry monitoring. NIBP monitoring applied. Door closed. Lights dimmed. Moved to private room. Warm blanket given. 20:44 No provider procedures requiring assistance completed. ar6 20:51 Urinalysis w/ reflexes Sent. ar6 20:58 CBC with Diff Sent. vk 20:58 Lactate w/ 2H reflex if indic. Sent. vk 20:58 Protime (+inr) Sent. vk 20:58 Urinalysis w/ reflexes Sent. vk 21:00 Inserted saline lock: 22 gauge in right antecubital area, using aseptic technique. vk Blood collected. Flushed with 10 mL NS. 21:01 Urine collected:. vk 21:59 Omar Cohn MD is Hospitalizing Provider. kb 22:10 Inserted saline lock: 18 gauge in right wrist, using aseptic technique. Blood collected.jb4 22:10 First set of blood cultures drawn by me. jb4 22:25 Second set of blood cultures drawn by me. jb4 09/22 01:32 Patient admitted, IV remains in place. jb4 Administered Medications: 09/21 22:28 Drug: vancoMYCIN IVPB 1 grams IVPB once over 2 hrs Route: IVPB; Infused Over: 2 hrs; jb4 Site: right antecubital; Medication: 20:44 VIS not applicable for this client. ar6 Outcome: 22:00 Decision to Hospitalize by Provider. kb 09/22 01:32 Admitted to Med/surg accompanied by tech, via wheelchair, room 220, jb4 Condition: stable Discharge instructions given to patient, family, Instructed on the need for admit, Demonstrated understanding of instructions, 01:32 Patient left the ED. jb4 Signatures: Dispatcher [employer] EDMS Ondina Stuart, CAYETANO MYERS-Charlotte Fox James, RN RN jb4 Yolanda Armando Amber, RN RN ar6
[2024-09-21] MEDS ORDERED: VANCOMYCIN 1 GM/VIAL ONE (22:08)
[2024-09-21] MEDS ORDERED: NA CHLORIDE 0.9% 250 ML ONE (22:09)
[2024-09-22] MEDS ORDERED: ONDANSETRON 4 MG (ODT) TAB PO PRN (00:04)
[2024-09-22] MEDS ORDERED: ACETAMINOPHEN 325 MG TABLET PO PRN (00:04)
--- NOTE | 2024-09-22 00:17 | P.HP ---
Certification for Inpatient With expected LOS: <2 Midnights Practitioner: I am a practitioner with admitting privileges, knowledge of patient current condition, hospital course, and medical plan of care. Services: Services provided to patient in accordance with Admission requirements found in Title 42 Section 412.3 of the Code of Federal Regulations Patient History Date of Service: 09/22/24 Reason for admission: cellulitis History of Present Illness: 74-year-old man with a past medical history significant for Alzheimer's dementia, hypertension, previous HI, and cellulitis presented to the emergency room complaining of worsening left lower extremity cellulitis. The patient's is present at bedside, and provides most of this history. The patient's states the patient has failed 2 rounds of clindamycin for his bilateral lower extremity cellulitis, and was instructed to bring the patient to the hospital for IV antibiotics. Patient is alert and oriented x 2 (name and place only). He states that recently he bumped his big toe on his left foot, but did not notice any new drainage. Ultrasound was ordered for left lower extremity and revealed no DVT. Allergies Penicillins Allergy (Mild, Verified 06/20/24 11:42) unknown Home medications list reviewed: Yes Home Medications: Donepezil HCl [Aricept] 10 mg PO DAILY 06/20/24 Doxycycline Hyclate 100 mg PO BID 8 Days #16 tab 06/25/24 Furosemide [Lasix*] 40 mg PO DAILY 30 Days #30 tab 06/25/24 Metoprolol Tartrate [Lopressor*] 25 mg PO BID 30 Days #60 tab 06/25/24 levoFLOXacin [Levaquin*] 750 mg PO DAILY 8 Days #8 tab 06/25/24 - Past Medical/Surgical History Diabetic: Yes -: Alzheimer dementia -: HTN -: previous HI (unknown date) Past Surgical History: Patient denies surgical history - Social History Smoking Status: Unknown if ever smoked Alcohol use: No CD- Drugs: No Caffeine use: Yes Review of Systems Musculoskeletal: Foot Pain (b/l) Integumentary: Rash (left lower extremity) Neurological: Confusion Physical Examination - Vital Signs Temperature: 97.6 F Blood Pressure: 147/71 Pulse: 57 Respirations: 18 Pulse Ox (%): 95 - Physical Exam General: Alert, Oriented x2 HEENT: Atraumatic, Normocephalic Neck: JVD not distended Respiratory: Normal air movement Cardiovascular: No gallops, No rubs, No murmurs Gastrointestinal: Normal bowel sounds, Non-distended Musculoskeletal: Swelling, Erythema, Tenderness, Warmth (b/l lower extremities, left worse than right) Neurological: Normal strength at 5/5 x4 extr, Abnormal sensation (b/l lower extremities) - Studies Laboratory Data (last 24 hrs) 09/21/24 09/21/24 09/21/24 20:56 20:56 20:56 WBC 7.70 Hgb 14.1 Hct 42.7 Plt Count 212 PT 11.7 INR 1.05 APTT 34.2 Sodium 142 Potassium 3.9 BUN 19 H Creatinine 1.37 H Glucose 95 Total Bilirubin 0.4 AST 14 L ALT 22 Alkaline Phosphatase 95 Assessment and Plan - Problems (Diagnosis) (1) Cellulitis Current Visit: Yes Status: Acute Qualifiers: Site of cellulitis of extremity: lower extremity - Plan Cellulitis: Admit to floor IV Zosyn ordered Blood cultures collected Given vancomycin in emergency room Lab work ordered - Advance Directives Does patient have a Living Will: No Does patient have a Durable POA for Healthcare: No
[2024-09-22] MEDS: PIPER TAZO 2.25 GM in NA CHLORIDE 0.9% 50 ML IV SCH (01:00)
[2024-09-22 02:13] VITALS: BMI 24.4
[2024-09-22] MEDS: HEPARIN 5000 UNIT/ML 1 ML VIAL SQ SCH (02:23)
[2024-09-22] MEDS: ZOLPIDEM TARTRATE 5 MG TABLET PO PRN (02:23)
[2024-09-22] MEDS: METOPROLOL TAR 25 MG TAB PO SCH (03:00)
[2024-09-22 05:57] LABS: ALT/SGPT 21 U/L (16-61); AST/SGOT 17 U/L (15-37); Albumin 3.2 g/dL (3.4-5.0); Albumin/Globulin Ratio 0.9 (1.1-1.8); Alkaline Phosphatase 85 U/L (45-117); Bilirubin Total 0.4 mg/dL (0.2-1.0); Globulin 3.7 g/dL (2.3-3.5); Magnesium 2.2 mg/dL (1.6-2.4); NT PRO-BNP 544 pg/mL (<125); Phosphorus 3.1 mg/dL (2.5-4.9); Protein, Total 6.9 g/dL (6.4-8.2)
[2024-09-22 05:59] LABS: Bilirubin Direct < 0.2 mg/dL (0-0.2); Bilirubin Indirect, Calculated 0.2 mg/dL (0.2-0.8)
[2024-09-22] MEDS ORDERED: METOPROLOL TAR 25 MG TAB PO SCH (06:00)
[2024-09-22] MEDS: Meropenem 1,000 MG in NA CHLORIDE 0.9% 100 ML IV SCH ×2 (09:02→17:53)
[2024-09-22] MEDS: HYDRALAZINE HCL 20 MG/ML VIAL IV PRN (09:04)
--- NOTE | 2024-09-22 11:07 | P.PN ---
Date of Service: 09/22/24 Subjective Awake, eating breakfast answering questions appropriate Afebrile ROS 10 point ROS as noted above, otherwise negative Physical Exam General: Awake, Alert and Oriented x2, NAD HEENT: Atraumatic, Normocephalic Neck: JVD not distended Respiratory: Normal air movement, on RA, symmetrical chest wall movement Cardiovascular: S1 S2 present, RRR, No murmurs Gastrointestinal: Normal bowel sounds, Non-distended Musculoskeletal: Swelling, Erythema, Tenderness, Warmth (b/l lower extremities, left worse than right), excoriation to left lower extremity Neurological: Normal strength at 5/5 x4 extr, Abnormal sensation (b/l lower extremities) Vitals Reviewed Problem list Cellulitis to LLE Alzheimer's dementia hypertension previous [place] Assessment and Plan Cellulitis to LLE -Developed while taking PO antibiotics -Venous Ultrasound LLE "No evidence of deep venous thrombosis" -Merrem -Follow blood cultures -Genlte IVF -General surgery consulted Alzheimer's dementia hypertension previous [place] -Continue home medications DVT ppx heparin Full code LOS 2-3 days
--- NOTE | 2024-09-22 14:47 | EKG ---
Test Date: 2024-09-21 Test Time: 21:31:36 Operations Expert: SANDEEP MEASUREMENT RESULTS: Intervals: Rate: 62 UT: 148 QRSD: 138 QT: 450 QTc: 456 [place]: P: 58 UT: 148 QRS: 117 T: 44 INTERPRETIVE STATEMENTS: Normal sinus rhythm Right bundle branch block Abnormal ECG Compared to ECG 06/19/2024 20:57:48 Atrial premature complex(es) no longer present Left posterior fascicular block no longer present Bifascicular block no longer present Electronically Signed On 09-22-24 14:45:43 CDT by Damaso Parikh
[2024-09-22] MEDS: DONEPEZIL HCL 5 MG TAB PO SCH (21:34)
[2024-09-23 04:47] LABS: Absolute Eosinophils 0.2 K/uL (0-0.5); Absolute Lymphocytes (CBC) 1.7 K/uL (0.7-4.9); Absolute Monocytes 0.6 K/uL (0.1-1.3); Absolute Neutrophil 4.5 K/uL (1.8-8.0); Basophils % 0.7 % (0-1.3); Eosinophils % 2.5 % (0-4.4); Hematocrit 38.1 % (39.6-49.0); Hemoglobin 12.6 g/dL (13.6-17.9); Lymphocytes % 23.7 % (15.3-44.8); MCH 31.5 pg (27.0-35.0); MCV 95.3 fL (80-100); MPV 9.7 fL (7.6-11.3); Monocytes % 8.4 % (3.3-12.3); Neutrophils % 64.7 % (41.7-73.7); Nucleated Red Blood Cells % 0.1 % (0-0); Platelets 180 thou/uL (152-406); Red Cell Distribution Width 14.1 % (12.1-15.2)
[2024-09-23 05:03] LABS: Anion Gap 7.1 mEq/L (5.0-15.0); Magnesium 2.3 mg/dL (1.6-2.4); Phosphorus 3.7 mg/dL (2.5-4.9); Potassium 4.1 mEq/L (3.5-5.1)
--- NOTE | 2024-09-23 14:09 | P.CNS ---
Date of Consult: 09/23/24 PC: I was asked to see this patient in regards to cellulitis of his left lower legs. HPC: This patient has been a recurrent problem for this patient. PMHx: Alzheimer's, previous [place] Social Hx: Allergic to penicillin Sys R: No other complaints O/E: Awake alert vital signs are stable HEENT: Within normal limits Chest: Air entry equal bilaterally Abd: Negative [place]: Has mild amount of cellulitis from the dorsum of the foot up to about mid calf. Also has area of hyperkeratosis on the medial aspect of his foot at the ankle. Data: No evidence of any DVT Impression: Chronic venous insufficiency with skin changes consistent with chronic varicose veins. Plan: I will discuss this with the hospitalist. I feel this patient can be treated with Unna boots and followed up as an outpatient. This is going to be an ongoing problem for this gentleman, as he is not very active at home is mostly sedentary due to his mental challenges.
--- NOTE | 2024-09-23 15:14 | P.PN ---
Date of Service: 09/23/24 Subjective Awake, eating breakfast answering questions appropriate Afebrile ROS 10 point ROS as noted above, otherwise negative Physical Exam General: AAO x2, NAD HEENT: Atraumatic, Normocephalic, MMM Neck: JVD not distended Respiratory: Normal air movement, Nonlabored breathing, symmetrical chest wall movement, on RA Cardiovascular: S1 S2 present, RRR, No murmurs Gastrointestinal: Normal bowel sounds, NT/ND, soft on palpation Musculoskeletal: Swelling, Erythema, Tenderness, Warmth (b/l lower extremities, left worse than right), excoriation to left lower extremity Neurological: Normal strength at 5/5 x4 extr, Abnormal sensation (b/l lower extremities) Vitals Reviewed Problem list Chronic venous insufficiency with skin changes consistent with chronic varicose veins Cellulitis to LLE Alzheimer's dementia hypertension previous [place] Assessment and Plan Cellulitis to LLE -Developed while taking PO antibiotics -Venous Ultrasound LLE "No evidence of deep venous thrombosis" -continue Merrem -Follow blood cultures NGTD -Genlte IVF -Dr. Espinoza Alzheimer's dementia hypertension previous [place] -Continue home medications DVT ppx heparin Full code LOS 2-3 days <Maria Luisa Bridges - Last Filed: 09/23/24 14:58> Patient seen and examined. Plan of care discussed with Ms. Bridges. Plan of care discussed with Dr. Espinoza On examination noted hyperkeratotic skin of right ankle with skin cracks, Foot erythema resolved. Patient with venous stasis dermatitis Dr. Espinoza recommend topical Vaseline and Martha boot. Transition IV antibiotics to oral antibiotics on discharge. Continue other home medications. <cassi fuentes - Last Filed: 09/23/24 17:49>
[2024-09-23 23:39] VITALS: O2SAT 96
[2024-09-24 03:41] VITALS: TEMP 98.7
[2024-09-24 05:13] VITALS: BP 142/81
--- NOTE | 2024-09-24 09:02 | P.DS ---
Admission Date: 09/22/24 Discharge Date: 09/24/24 Disposition: ROUTINE DISCHARGE Discharge Condition: FAIR Reason for Admission: cellulitis Brief History of Present Illness: Diagnosis Chronic venous insufficiency with skin changes consistent with chronic varicose veins Venous stasis dermatitis Cellulitis to LLE Alzheimer's dementia hypertension previous ME HPI 09/22/24 Roverto Holly is a 74-year-old man with a past medical history significant for Alzheimer's dementia, hypertension, previous ME, and cellulitis presented to the emergency room complaining of worsening left lower extremity cellulitis. The patient's is present at bedside, and provides most of this history. The patient's states the patient has failed 2 rounds of clindamycin for his bilateral lower extremity cellulitis, and was instructed to bring the patient to the hospital for IV antibiotics. Patient is alert and oriented x 2 (name and place only). He states that recently he bumped his big toe on his left foot, bu t did not notice any new drainage. Ultrasound was ordered for left lower extremity and revealed no DVT. Hospital Course: Roverto Holly is a pleasant 74 year old male with a past medical history significant for Alzheimer's dementia, hypertension, previous ME, and cellulitis who was admitted to the [facility] on 09/22/2024 for LLE cellulitis. Roverto presented to the ED with chief complaint of LLE swelling and chronic wound. Roverto was found to have normal labs, lower extremity presents with venous statis dermatitis, Ultrasound was ordered for left lower extremity and revealed no DVT. Blood cultures with no growth to date, afebrile this admission, and ambulating independently. He has tolerated IV antibiotics and will continue the course with doxycycline. Dr. Espinoza consulted and recommends vaseline daily with an BO boot. Continue to follow-up with Dr. Espinoza for wound healing and antibiotic management. Blood pressure was elevated and he has tolerated metoprolol, he will continue metoprolol outpatient he will follow-up with his PCP concerning blood pressure management. On 09/24/2024, Roverto was seen on morning rounds and deemed medically stable for discharge. Roverto was discharged with instructions to schedule follow-up appointments with Dr. Lagos and PCP. Roverto was provided prescriptions for doxycycline and metoprolol. Physical Exam General: Alert and oriented x2, NAD HEENT: Atraumatic, Normocephalic, MMM Neck: JVD not distended Respiratory: Normal air movement, symmetrical chest wall movement, on RA Cardiovascular: normal S1 S2 present, regular rate and rhythm, No murmurs Gastrointestinal: Normal active bowel sounds, NT/ND, soft on palpation Musculoskeletal: Swelling, Erythema, Tenderness, Warmth (b/l lower extremities, left worse than right), excoriation to left lower extremity Neurological: Normal strength at 5/5 x4 extr, Abnormal sensation (b/l lower extremities) Vital Signs/Physical Exam: Temp Pulse Resp BP Pulse Ox 98.7 F 64 16 142/81 H 98 09/24/24 04:00 09/24/24 05:12 09/24/24 04:00 09/24/24 05:12 09/24/24 04:00 Laboratory Data at Discharge: WBC 7.00 thou/uL (4.3-10.9) 09/23/24 04:33 Hgb 12.6 g/dL (13.6-17.9) L 09/23/24 04:33 Hct 38.1 % (39.6-49.0) L 09/23/24 04:33 Plt Count 180 thou/uL (152-406) 09/23/24 04:33 PT 11.7 SECONDS (9.4-12.5) 09/21/24 20:56 INR 1.05 09/21/24 20:56 APTT 34.2 SECONDS (24.3-36.9) 09/21/24 20:56 Sodium 141 mEq/L (136-145) 09/23/24 04:33 Potassium 4.1 mEq/L (3.5-5.1) 09/23/24 04:33 BUN 25 mg/dL (7-18) H 09/23/24 04:33 Creatinine 1.25 mg/dL (0.70-1.30) 09/23/24 04:33 Glucose 107 mg/dL (74-106) H 09/23/24 04:33 Phosphorus 3.7 mg/dL (2.5-4.9) 09/23/24 04:33 Magnesium 2.3 mg/dL (1.6-2.4) 09/23/24 04:33 Total Bilirubin 0.4 mg/dL (0.2-1.0) 09/22/24 05:19 AST 17 U/L (15-37) 09/22/24 05:19 ALT 21 U/L (16-61) 09/22/24 05:19 Alkaline Phosphatase 85 U/L (45-117) 09/22/24 05:19 Triglycerides 56 mg/dL (<150) 09/23/24 04:33 Cholesterol 142 mg/dL (<200) 09/23/24 04:33 HDL Cholesterol 54 mg/dL (40-60) 09/23/24 04:33 Cholesterol/HDL Ratio 2.63 09/23/24 04:33 Home Medications: Donepezil HCl [Aricept] 10 mg PO DAILY 06/20/24 Doxycycline Hyclate 100 mg PO BID 7 Days #14 tab 09/24/24 Metoprolol Tartrate [Lopressor*] 25 mg PO BID 6AM 6PM 30 Days #60 tab 09/24/24 New Medications: Doxycycline Hyclate 100 mg PO BID 7 Days #14 tab Metoprolol Tartrate [Lopressor*] 25 mg PO BID 6AM 6PM 30 Days #60 tab Physician Discharge Instructions: 1. Please call and schedule an appointment with PCP ni 3-5 days -all refills will be handled with PCP -Hypothyroidism is suspected with TSH 9.9 -Starting metoprolol, please check blood pressure twice daily prior to taking blood pressure medications - hold blood pressure medications if BP less than 120/70 2. Please call and schedule an appointment with Dr. Espinoza in one week for left lower extremity cellulitis -Vaseline to left leg daily -BO boot per Dr. Espinoza -Manage antibiotics for left leg cellulitis 3. continue regular diet 4. fall precautions New medications Metoprolol 25 mg 6 am and 6 pm Doxycycline 100 mg twice daily x 7 days Diet: Regular Activity: Fall precautions Followup: Juan F Espinoza MD [ACTIVE - CAN ADMIT] - 1 Week Adam Brooks MD [Primary Care Provider] - 1-2 Weeks
[2024-09-24 09:12] LABS: Absolute Eosinophils 0.2 K/uL (0-0.5); Absolute Monocytes 0.3 K/uL (0.1-1.3); Absolute Neutrophil 4.6 K/uL (1.8-8.0); Basophils % 0.7 % (0-1.3); Eosinophils % 2.8 % (0-4.4); Hemoglobin 13.7 g/dL (13.6-17.9); Lymphocytes % 16.7 % (15.3-44.8); MCH 31.8 pg (27.0-35.0); MCHC 33.3 g/dL (32.0-36.0); MCV 95.3 fL (80-100); MPV 9.3 fL (7.6-11.3); Monocytes % 4.7 % (3.3-12.3); Neutrophils % 75.1 % (41.7-73.7); Nucleated Red Blood Cells % 0.1 % (0-0); Platelets 185 thou/uL (152-406); RBC Red Blood Cell Count 4.31 M/uL (4.33-5.43)
[2024-09-24 09:26] LABS: Phosphorus 2.5 mg/dL (2.5-4.9)
[2024-09-24 09:28] LABS: Magnesium 2.3 mg/dL (1.6-2.4)
== END 2024-09-24 10:51 | disposition home or self-care (01) | DRG 603 ==
LOC: ER 18:33 → ERHOLD 09-22 00:04 → 2ND 09-22 01:05
PROVIDERS: ADMIT Internal Medicine; ATTEND Internal Medicine
DX: L03.116 Cellulitis of left lower limb (principal); I10 Essential (primary) hypertension; L85.9 Epidermal thickening, unspecified; I83.12 Varicose veins of left lower extremity with inflammation; G30.9 Alzheimer's disease, unspecified; F02.80 Dementia in other diseases classified elsewhere, unspecified severity, without behavioral disturbance, psychotic disturbance, mood disturbance, and anxiety; I25.2 Old myocardial infarction; Z88.0 Allergy status to penicillin
CPT/HCPCS: 36415; 71045; 80048; 80053; 80061; 80076; 81001; 83605; 83735; 83880; 84100; 84439; 84443; 85025; 85610; 85730; 87040; 93005; 93971; 94760; 96374; 99285; J0360; J1644; J2185; J7050

== ENCOUNTER 2024-11-25 17:47 | Inpatient (IN) | payer OTHER ==
--- NOTE | 2024-11-25 19:08 | RAD REPORT ---
EXAMINATION: ONE VIEW CHEST XR CLINICAL INDICATION: COUGH TECHNIQUE: Frontal chest projection is submitted. Examination is limited by patient positioning and t echnique. COMPARISON: 09/21/2024 FINDINGS: Marked gaseous distention in the left upper quadrant raises the left hemidiaphragm, unchanged since p rior study. The lungs are grossly clear. The heart is normal in size. No displaced fractures identified. IMPRESSION: No acute intrathoracic abnormalities.
--- NOTE | 2024-11-25 19:17 | ER ---
Nurse's Notes [facility] Name: Roverto Holly Age: 74 yrs Sex: Male : 1950 Arrival Date: 11/25/2024 Time: 17:47 Bed 19 Private MD: Diagnosis: Cellulitis and acute lymphangitis of other parts of limb-BILATERAL LOWER EXTREMITY,RED TENDER;Edema, unspecified Presentation: 11/25 18:15 Chief complaint: Spouse and/or significant other states: he has leg swelling on and iw off, his left leg gets weepy and forms scabs, he scrubs it in the shower and it gets real red, takes furosemide PRN for the swelling. Coronavirus screen: At this time, the client does not indicate any symptoms associated with coronavirus-19. Ebola Screen: No symptoms or risks identified at this time. Initial Sepsis Screen: Does the patient meet any 2 criteria? No. Patient's initial sepsis screen is negative. Does the patient have a suspected source of infection? No. Patient's initial sepsis screen is negative. Risk Assessment: Do you want to hurt yourself or someone else? Patient reports no desire to harm self or others. 18:15 Method Of Arrival: Ambulatory iw 18:15 Acuity: AKILAH 3 iw 20:54 Onset of symptoms is unknown. me1 Historical: - Allergies: 18:16 PENICILLINS; iw - PMHx: 18:16 Alzheimer's disease; Hypertensive disorder; Myocardial infarction; iw - Immunization history:: Adult Immunizations not up to date. - Infectious Disease History:: Denies. - Social history:: Smoking status: Patient denies any tobacco usage or history of. - Family history:: not pertinent. Screenin:15 [facility] ED Fall Risk Assessment (Adult) History of falling in the last 3 months, me1 including since admission No falls in past 3 months (0 pts) Confusion or Disorientation No (0 pts) Intoxicated or Sedated No (0 pts) Impaired Gait Yes (1 pt) Mobility Assist Device Used Yes (1 pt) Altered Elimination No (0 pt) Score/Fall Risk Level 0 - 2 = Low Risk Maintained a safe environment, Provided non-skid footwear, Hourly rounding (assess needs \T\ fall precautionary measures) done. Abuse screen: Denies threats or abuse. Nutritional screening: No deficits noted. Tuberculosis screening: No symptoms or risk factors identified. Assessment: 18:15 General: Appears comfortable, well groomed, well developed, well nourished, Behavior is me1 calm, cooperative, appropriate for age, Reports he has leg swelling on and off, his left leg gets weepy and forms scabs, he scrubs it in the shower and it gets real red, takes furosemide PRN for the swelling. Pain: Complains of pain in left leg Pain does not radiate. Pain currently is 4 out of 10 on a pain scale. Quality of pain is described as tender, Pain began gradually, Is continuous. Neuro: Level of Consciousness is awake, alert, obeys commands, Oriented to person, place, time, situation, Appropriate for age. Cardiovascular: Patient's skin is warm and dry. Respiratory: Airway is patent Respiratory effort is even, unlabored, Respiratory pattern is regular, symmetrical. GI: No signs and/or symptoms were reported involving the gastrointestinal system. : No signs and/or symptoms were reported regarding the genitourinary system. EENT: No signs and/or symptoms were reported regarding the EENT system. Derm: Skin is healthy with good turgor, Skin is pink, warm \T\ dry. Wound noted left sheehan Wound is red, warm and swollen LLE. Musculoskeletal: Swelling present in left leg and right leg Reports pain in left leg. Vital Signs: 18:15 BP 193 / 100; Pulse 71; Resp 16; Temp 98.4; Pulse Ox 100% on R/A; Weight 72.57 kg; iw Height 6 ft. 0 in. ; Pain 0/10; 19:00 BP 152 / 74; Pulse 58; Resp 16; Pulse Ox 100% ; me1 20:00 BP 178 / 85; Pulse 56; Resp 16; Temp 98.4; Pulse Ox 100% ; me1 20:54 BP 174 / 77; Pulse 60; Resp 17; Pulse Ox 100% ; me1 18:15 Body Mass Index 21.70 (72.57 kg, 182.88 cm) iw 18:15 Pain Scale: Adult iw ED Course: 17:49 Patient arrived in ED. mr 18:09 Ray Jones MD is Attending Physician. thomas 18:15 Patient has correct armband on for positive identification. Bed in low position. Call me1 light in reach. Side rails up X2. Provided Education on: POC. Verbalized understanding.. Client placed on continuous cardiac and pulse oximetry monitoring. NIBP monitoring applied. groundwater monitoring technician on. Pulse ox on. NIBP on. 18:15 No provider procedures requiring assistance completed. me1 18:16 Triage completed. iw 18:16 Arm band placed on. iw 18:19 Jamilah Anderson, RN is Primary Nurse. me1 19:03 XRAY Chest (1 view) In Process Unspecified. EDMS 19:16 Prince Hernandez MD is Hospitalizing Provider. thomas 19:23 Initial lab(s) drawn, by ct, sent to lab. First set of blood cultures drawn by ct. me1 19:27 Basic Metabolic Panel Sent. me1 19:27 CBC with Diff Sent. me1 19:27 LFT's Sent. me1 19:27 Magnesium Sent. me1 19:27 NT PRO-BNP Sent. me1 19:27 PT-INR Sent. me1 19:27 Troponin HS Sent. me1 19:28 Inserted saline lock: 22 gauge in right antecubital area, using aseptic technique. me1 19:40 Second set of blood cultures drawn by ct. me1 19:51 EKG done, by technician support association. af3 21:36 Patient admitted, IV remains in place. me1 Administered Medications: 20:00 Drug: Famotidine IVP 20 mg IVP once; dilute with 10 mL 0.9% NaCl; give over 2 minutes me1 Route: IVP; Site: right antecubital; 21:02 Follow up: Response: No adverse reaction me1 20:00 Drug: Junnxmzl-Ksmmsgvqum-Yixjhrsah Topical Ointment 1 application Topical once {Note: me1 left lower leg.} Route: Topical; Site: wound; 20:00 Drug: NS 0.9% IV 500 ml IV at per protocol once; to be given as a bolus over 30 minutes me1 Route: IV; Rate: per protocol; Site: right antecubital; 21:02 Follow up: Response: No adverse reaction; IV Status: Completed infusion; IV Intake: me1 500ml 20:01 Drug: LevOfloxacin PO 750 mg PO once Route: PO; me1 21:03 Follow up: Response: No adverse reaction me1 20:01 Drug: ceFAZolin IVPB 2 grams IVPB once over 30 mins; (mix in 100 mL NS) Route: IVPB; me1 Infused Over: 30 mins; Site: right antecubital; 20:34 Follow up: Response: No adverse reaction; IV Status: Completed infusion; IV Intake: me1 100ml 20:02 Drug: Lovenox Sub-Q 40 mg Sub-Q once Route: Sub-Q; Site: left lower abdomen; me1 21:01 Follow up: Response: No adverse reaction me1 20:34 Drug: vancoMYCIN IVPB 1 grams IVPB once over 2 hrs Route: IVPB; Infused Over: 2 hrs; me1 Site: right antecubital; 21:03 Follow up: IV Status: Infusion continued upon admission me1 Medication: 18:15 VIS not applicable for this client. me1 Intake: 20:34 IV: 100ml; Total: 100ml. me1 21:02 IV: 500ml; Total: 600ml. me1 Outcome: 19:17 Decision to Hospitalize by Provider. thomas 21:36 Admitted to Med/surg accompanied by tech, via wheelchair, room 205, on monitor, Report me1 called to faxed, receipt confirmed with Maria D 21:36 Condition: stable 21:36 Instructed on the need for admit, 21:37 Patient left the ED. ct1 Signatures: Dispatcher [employer] EDRay Casas MD MD cha Rivera, Mary, [facility] Reg mr Eleni Castillo, RN RN Jamilah Anderson RN RN [facility] Zabrina Contreras af3 Corrections: (The following items were deleted from the chart) 20:50 18:15 Chief complaint: Spouse and/or significant other states: he has leg swelling on me1 and off, his left leg gets weepy and forms scabs, he scrubs it in the shower and it gets real red, takes furosemide PRN for the swelling iw
--- NOTE | 2024-11-25 19:17 | EDPHYS ---
Physician Documentation [facility] Name: Roverto Holly Age: 74 yrs Sex: Male : 1950 Arrival Date: 11/25/2024 Time: 17:47 Bed 19 Private MD: ED Physician Ray Jones HPI: 11/25 19:12 This 74 yrs old Male presents to ER via Ambulatory with complaints of Leg thomas Swelling, Left. 19:12 The patient presents with pain, swelling, tenderness. The complaints affect the right thomas leg and left leg. Context: The problem was sustained at an unknown site. Onset: The symptoms/episode began/occurred 3 day(s) ago. Modifying factors: The symptoms are alleviated by nothing. Associated signs and symptoms: The patient has no apparent associated signs or symptoms. LEG SWELLING , ERYTHEMA, LEFT GREATER YHAN RIGHT. Treatment prior to arrival includes: elevation of the extremity. Severity of symptoms: At their worst the symptoms were moderate in the emergency department the symptoms are worse. Historical: - Allergies: 18:16 PENICILLINS; iw - PMHx: 18:16 Alzheimer's disease; Hypertensive disorder; Myocardial infarction; iw - Immunization history:: Adult Immunizations not up to date. - Infectious Disease History:: Denies. - Social history:: Smoking status: Patient denies any tobacco usage or history of. - Family history:: not pertinent. ROS: 19:12 Constitutional: Negative for fever, chills, and weight loss, Eyes: Negative for injury, thomas pain, redness, and discharge, ENT: Negative for injury, pain, and discharge, Neck: Negative for injury, pain, and swelling, Cardiovascular: Negative for chest pain, palpitations, and edema, Respiratory: Negative for shortness of breath, cough, wheezing, and pleuritic chest pain, Abdomen/GI: Negative for abdominal pain, nausea, vomiting, diarrhea, and constipation, Back: Negative for injury and pain, : Negative for injury, bleeding, discharge, and swelling, Neuro: Negative for headache, weakness, numbness, tingling, and seizure, Psych: Negative for depression, anxiety, suicide ideation, homicidal ideation, and hallucinations, Allergy/Immunology: Negative for hives, rash, and allergies, Endocrine: Negative for neck swelling, polydipsia, polyuria, polyphagia, and marked weight changes, Hematologic/Lymphatic: Negative for swollen nodes, abnormal bleeding, and unusual bruising, 19:12 MS/extremity: Positive for pain, swelling, tenderness, warmth, of the right leg and left leg, Exam: 19:12 Constitutional: This is a well developed, well nourished patient who is awake, alert, thomas and in no acute distress. Head/Face: Normocephalic, atraumatic. Eyes: Pupils equal round and reactive to light, extra-ocular motions intact. Lids and lashes normal. Conjunctiva and sclera are non-icteric and not injected. Cornea within normal limits. Periorbital areas with no swelling, redness, or edema. ENT: Nares patent. No nasal discharge, no septal abnormalities noted. Tympanic membranes are normal and external auditory canals are clear. Oropharynx with no redness, swelling, or masses, exudates, or evidence of obstruction, uvula midline. Mucous membranes moist. Neck: Trachea midline, no thyromegaly or masses palpated, and no cervical lymphadenopathy. Supple, full range of motion without nuchal rigidity, or vertebral point tenderness. No Meningismus. Chest/axilla: Normal chest wall appearance and motion. Nontender with no deformity. No lesions are appreciated. Cardiovascular: Regular rate and rhythm with a normal S1 and S2. No gallops, murmurs, or rubs. Normal PMI, no JVD. No pulse deficits. Respiratory: Lungs have equal breath sounds bilaterally, clear to auscultation and percussion. No rales, rhonchi or wheezes noted. No increased work of breathing, no retractions or nasal flaring. Abdomen/GI: Soft, non-tender, with normal bowel sounds. No distension or tympany. No guarding or rebound. No evidence of tenderness throughout. Back: No spinal tenderness. No costovertebral tenderness. Full range of motion. Male : Normal genitalia with no discharge or lesions. Skin: Warm, dry with normal turgor. Normal color with no rashes, no lesions, and no evidence of cellulitis. Neuro: Awake and alert, GCS 15, oriented to person, place, time, and situation. Cranial nerves II-XII grossly intact. Motor strength 5/5 in all extremities. Sensory grossly intact. Cerebellar exam normal. Normal gait. Psych: Awake, alert, with orientation to person, place and time. Behavior, mood, and affect are within normal limits. 19:12 Musculoskeletal/extremity: Extremities: grossly normal except: erythema, pain, ROM: full active range of motion, full passive range of motion, Circulation is intact in all extremities. Sensation intact. Compartment Syndrome exam of affected extremity: is normal. Joints: All joints appear normal with full range of motion. DVT Exam: negative Homans' sign noted on exam, no appreciated bluish discoloration, pain, swelling, tenderness, erythema, increased warmth, 19:57 ECG was reviewed by the Attending Physician. [facility] Vital Signs: 18:15 BP 193 / 100; Pulse 71; Resp 16; Temp 98.4; Pulse Ox 100% on R/A; Weight 72.57 kg; iw Height 6 ft. 0 in. ; Pain 0/10; 19:00 BP 152 / 74; Pulse 58; Resp 16; Pulse Ox 100% ; me1 20:00 BP 178 / 85; Pulse 56; Resp 16; Temp 98.4; Pulse Ox 100% ; me1 20:54 BP 174 / 77; Pulse 60; Resp 17; Pulse Ox 100% ; me1 18:15 Body Mass Index 21.70 (72.57 kg, 182.88 cm) iw 18:15 Pain Scale: Adult iw MDM: 18:09 Medical Screening Exam initiated thomas 19:14 Differential diagnosis: contusion, abrasion, tendonitis. Differential Diagnosis altered [facility] mental status, sepsis. Data reviewed: vital signs, nurses notes, lab test result(s), EKG, radiologic studies, doppler, plain films. Consideration of Admission/Observation Patient was admitted/placed on observation. Escalation of care including admission/observation considered. I considered the following discharge prescriptions or medication management in the emergency department Medications were administered in the Emergency Department. See MAR. Independent interpretation of the following test(s) in the Emergency Department EKG: See my EKG interpretation above. Test considered but Not performed: MRI: NO MRI BLE. Care significantly affected by the following chronic conditions: Hypertension, Obesity, ALZHEIMERS, EDEMA, CELLULITIS BLE. 11/25 18:25 Order name: Basic Metabolic Panel; Complete Time: 20:16 [facility] 11/25 18:25 Order name: CBC with Diff; Complete Time: 19:58 [facility] 11/25 18:25 Order name: LFT's; Complete Time: 20:16 [facility] 11/25 18:25 Order name: Magnesium; Complete Time: 20:16 [facility] 11/25 18:25 Order name: NT PRO-BNP; Complete Time: 20:16 [facility] 11/25 18:25 Order name: PT-INR; Complete Time: 19:58 [facility] 11/25 18:25 Order name: Troponin HS; Complete Time: 20:16 [facility] 11/25 18:25 Order name: Blood Culture Adult (2) [facility] 11/25 19:28 Order name: Creatine Phosphokinase [facility] 11/25 19:28 Order name: Lactate w/ 2H reflex if indic. [facility] 11/25 19:28 Order name: Magnesium [facility] 11/25 19:28 Order name: Phosphorus [facility] 11/25 19:28 Order name: Urinalysis w/ reflexes [facility] 11/25 19:28 Order name: Basic Metabolic Panel [facility] 11/25 19:28 Order name: Basic Metabolic Panel [facility] 11/25 19:28 Order name: CBC with Automated Diff [facility] 11/25 19:28 Order name: CBC with Automated Diff [facility] 11/25 19:28 Order name: Lipid Profile [facility] 11/25 19:28 Order name: Lipid Profile [facility] 11/25 18:25 Order name: XRAY Chest (1 view); Complete Time: 19:10 [facility] 11/25 19:45 Order name: US; Complete Time: 19:58 [facility] 11/25 18:25 Order name: Cardiac monitoring; Complete Time: 19:51 [facility] 11/25 18:25 Order name: EKG - Nurse/Tech; Complete Time: 19:51 [facility] 11/25 18:25 Order name: IV Saline Lock; Complete Time: 19:26 [facility] 11/25 18:25 Order name: Labs collected and sent; Complete Time: 19:26 [facility] 11/25 18:25 Order name: O2 Per Protocol; Complete Time: 19:26 [facility] 11/25 18:25 Order name: O2 Sat Monitoring; Complete Time: 19:27 [facility] EC:57 Rate is 61 beats/min. Rhythm is regular. QRS [place] is Normal. VT interval is normal. QRS thomas interval is normal. QT interval is normal. No Q waves. T waves are Normal. No ST changes noted. Clinical impression: NSR w/ Non-specific ST/T Changes and No evidence of ischemia. Interpreted by me. Reviewed by me. Administered Medications: 20:00 Drug: Famotidine IVP 20 mg IVP once; dilute with 10 mL 0.9% NaCl; give over 2 minutes me1 Route: IVP; Site: right antecubital; 21:02 Follow up: Response: No adverse reaction me1 20:00 Drug: Bqxsysex-Eukrlireyo-Jdroohrmb Topical Ointment 1 application Topical once {Note: me1 left lower leg.} Route: Topical; Site: wound; 20:00 Drug: NS 0.9% IV 500 ml IV at per protocol once; to be given as a bolus over 30 minutes me1 Route: IV; Rate: per protocol; Site: right antecubital; 21:02 Follow up: Response: No adverse reaction; IV Status: Completed infusion; IV Intake: me1 500ml 20:01 Drug: LevOfloxacin PO 750 mg PO once Route: PO; me1 21:03 Follow up: Response: No adverse reaction me1 20:01 Drug: ceFAZolin IVPB 2 grams IVPB once over 30 mins; (mix in 100 mL NS) Route: IVPB; me1 Infused Over: 30 mins; Site: right antecubital; 20:34 Follow up: Response: No adverse reaction; IV Status: Completed infusion; IV Intake: me1 100ml 20:02 Drug: Lovenox Sub-Q 40 mg Sub-Q once Route: Sub-Q; Site: left lower abdomen; me1 21:01 Follow up: Response: No adverse reaction me1 20:34 Drug: vancoMYCIN IVPB 1 grams IVPB once over 2 hrs Route: IVPB; Infused Over: 2 hrs; me1 Site: right antecubital; 21:03 Follow up: IV Status: Infusion continued upon admission me1 Disposition Summary: 11/25/24 19:17 Hospitalization Ordered Notes: Hospitalization Status: Inpatient Admission thomas Provider: Prince thomas Hernandez Location: Telemetry/MedSur (Inpatient) thomas Condition: Stable thomas Problem: new thomas Symptoms: have improved thomas Bed/Room Type: Standard [facility] Room Assignment: 205(11/25/24 19:36) kmf Diagnosis - Cellulitis and acute lymphangitis of other parts of limb - BILATERAL LOWER thomas EXTREMITY,RED TENDER - Edema, unspecified thomas Forms: - Medication Reconciliation Form thomas - SBAR form thomas - Leadership Thank You Letter thomas Signatures: Dispatcher [employer] Ray Lynn MD MD cha Williams, Irene, RN RN iw Jamilah Anderson RN RN me1 Jacy Hsieh kmf Corrections: (The following items were deleted from the chart) 18:25 18:25 BASIC METABOLIC PANEL+C.LAB.BRZ ordered. EDMS EDMS 18:25 18:25 CBC+H.LAB.BRZ ordered. EDMS EDMS 18:25 18:25 HEPATIC FUNCTION+C.LAB.BRZ ordered. EDMS EDMS 18:25 18:25 MAGNESIUM+C.LAB.BRZ ordered. EDMS EDMS 18:25 18:25 PROBNP+C.LAB.BRZ ordered. EDMS EDMS 18:25 18:25 PROTIME (+INR)+COAG.LAB.BRZ ordered. EDMS EDMS 18:25 18:25 Troponin High Sensitivity+C.LAB.BRZ ordered. EDMS EDMS 18:25 18:25 BLOOD CULTURE*+BA.LAB.BRZ ordered. EDMS EDMS 18:26 18:26 Chest Single View+RAD.RAD.BRZ ordered. EDMS EDMS 18:26 18:26 Extrem Venous W Compression Seth+US.RAD.BRZ ordered. EDMS EDMS 19:36 19:17 thomas kmf
[2024-11-25] MEDS ORDERED: ONDANSETRON 4 MG/2 ML VIAL IV PRN (19:24)
[2024-11-25] MEDS ORDERED: ACETAMINOPHEN 500 MG TAB PO PRN (19:24)
[2024-11-25 19:43] LABS: Absolute Basophils 0.1 K/uL (0-0.5); Absolute Eosinophils 0.2 K/uL (0-0.5); Absolute Lymphocytes (CBC) 1.6 K/uL (0.7-4.9); Absolute Monocytes 0.6 K/uL (0.1-1.3); Absolute Neutrophil 5.7 K/uL (1.8-8.0); Basophils % 0.9 % (0-1.3); Hematocrit 43.7 % (39.6-49.0); Hemoglobin 14.4 g/dL (13.6-17.9); Lymphocytes % 19.8 % (15.3-44.8); MCH 30.8 pg (27.0-35.0); MCV 93.4 fL (80-100); MPV 9.1 fL (7.6-11.3); Monocytes % 7.5 % (3.3-12.3); Neutrophils % 69.8 % (41.7-73.7); Nucleated Red Blood Cells % 0.1 % (0-0); Platelets 221 thou/uL (152-406); RBC Red Blood Cell Count 4.68 M/uL (4.33-5.43); Red Cell Distribution Width 13.7 % (12.1-15.2)
[2024-11-25 19:44] LABS: PT Prothrombin Time 11.8 SECONDS (9.4-12.5); Protime INR 1.06
--- NOTE | 2024-11-25 19:44 | RAD REPORT ---
EXAMINATION: US BILATERAL LOWER EXTREMITY VENOUS DOPPLER CLINICAL INDICATION: Pain;Swelling TECHNIQUE: Complete bilateral duplex sonography of the BILATERAL lower extremity veins was performed. The examination included compression for vein patency, color Doppler imaging and flow augmentation in response to distal compression of the distal external iliac, common femoral, femoral, popliteal, t ibial, and great and small saphenous veins. COMPARISON: No prior exam. FINDINGS: Duplex sonography testing of the veins of the BILATERAL lower extremity was performed. Color flow angelica ging shows all veins to be compressible with [id number] color filling. Pulsatile and phasic flow is present within all lower extremity deep and superficial veins examined. IMPRESSION: There is no deep vein or superficial vein thrombosis.
[2024-11-25] MEDS ORDERED: levoFLOXacin 750 MG TAB ONE (19:48)
[2024-11-25] MEDS ORDERED: FAMOTIDINE 20 MG/2 ML VIAL IV ONE (19:48)
[2024-11-25] MEDS ORDERED: ENOXAPARIN 40 MG/0.4 ML SQ ONE (19:48)
[2024-11-25] MEDS ORDERED: NA CHLORIDE 0.9% 500 ML ONE (19:48)
[2024-11-25] MEDS ORDERED: NA CHLORIDE 0.9% 250 ML ONE (19:48)
[2024-11-25] MEDS ORDERED: VANCOMYCIN 1 GM/VIAL ONE (19:48)
[2024-11-25] MEDS ORDERED: NEOMYC/POLYMYX/GRAMICID OPTH 10 ML BTL ONE (19:48)
[2024-11-25] MEDS ORDERED: CEFAZOLIN SODIUM 2 GM/VIAL ONE (19:49)
[2024-11-25] MEDS ORDERED: NA CHLORIDE 0.9% 100 ML ONE (19:49)
[2024-11-25] MEDS: CLINDAMYCIN PHOSPHATE 900 MG in NA CHLORIDE 0.9% 50 ML IV SCH (19:57)
--- NOTE | 2024-11-25 19:58 | P.HP ---
Certification for Inpatient Patient admitted to: Inpatient With expected LOS: >2 Midnights Practitioner: I am a practitioner with admitting privileges, knowledge of patient current condition, hospital course, and medical plan of care. Services: Services provided to patient in accordance with Admission requirements found in Title 42 Section 412.3 of the Code of Federal Regulations Patient History Date of Service: 11/25/24 Reason for admission: LLE cellulitis History of Present Illness: Patient is a 74-year-old male with a known past medical history of Alzheimer dementia, hypertension, previous MIs and lower extremity cellulitis. He presented to the ER complaining of worsening left lower extremity cellulitis. Patient has had admissions for the same issue in the past. He has chronic venous insufficiency with skin changes suggestive of chronic varicose veins and venous stasis dermatitis. Patient is followed by Dr. Vides at the wound care center. states that he used to be on doxycycline but he has recently ran out of medication. Patient is reporting increased redness and swelling involving his left ankle down. He also developed small blisters that burst. He denies systemic symptoms such as fever or chills. Allergies Penicillins Allergy (Mild, Verified 06/20/24 11:42) unknown Home Medications: Donepezil HCl [Aricept] 10 mg PO DAILY 06/20/24 Doxycycline Hyclate 100 mg PO BID 7 Days #14 tab 09/24/24 Metoprolol Tartrate [Lopressor*] 25 mg PO BID 6AM 6PM 30 Days #60 tab 09/24/24 - Past Medical/Surgical History Diabetic: Yes -: Alzheimer dementia -: HTN -: previous NV (unknown date) - Social History Alcohol use: No CD- Drugs: No Caffeine use: No Physical Examination - Physical Exam General: In no apparent distress HEENT: Atraumatic, Normocephalic Respiratory: Clear to auscultation bilaterally, Normal air movement Cardiovascular: Normal pulses, Regular rate/rhythm, Normal S1 S2, Edema (Bilateral lower extremity edema) Integumentary: Skin breakdown, Tenderness/swelling, Erythema, Warmth Neurological: Other (Facial droop) - Studies Laboratory Data (last 24 hrs) 11/25/24 11/25/24 19:23 19:23 WBC 8.20 Hgb 14.4 Hct 43.7 Plt Count 221 PT 11.8 INR 1.06 Assessment and Plan - Problems (Diagnosis) (1) CAD (coronary artery disease) Current Visit: No Status: Acute (2) Cellulitis Current Visit: No Status: Acute (3) HTN (hypertension) Current Visit: No Status: Acute - Plan Assessment Patient is a 74-year-old male with history of chronic venous stasis complicated by venous stasis dermatitis and multiple admissions for lower extremity cellulitis. He is here in the hospital for increased redness and swelling involving his left ankle and left foot. Patient is not septic. Ultrasound was ordered and ruled out DVT. He has been seen in August for similar presentation. He was eval by Dr. Espinoza. At the time, Vaseline daily and the Unna boot was recommended. Patient follows up at the wound clinic with Dr. Vides. Recurrent left lower extremity cellulitis Chronic venous stasis and stasis dermatitis Coronary artery disease status post NV Chronic diastolic CHF Alzheimer dementia Plan: Will admit inpatient with telemetry Patient has received a dose of vancomycin and ceftriaxone in the ER Will treat with IV clindamycin going forward Will also give a trial of Lasix due to bilateral lower extremity edema Pain control Wound care and general surgery has been consulted Resume rest of home medications upon reconciliation - Advance Directives Does patient have a Living Will: No Does patient have a Durable POA for Healthcare: No
[2024-11-25 20:00] LABS: ALT/SGPT 39 U/L (16-61); AST/SGOT 38 U/L (15-37); Albumin 3.4 g/dL (3.4-5.0); Albumin/Globulin Ratio 0.8 (1.1-1.8); Alkaline Phosphatase 115 U/L (45-117); Anion Gap 10.8 mEq/L (5.0-15.0); BUN Blood Urea Nitrogen 21 mg/dL (7-18); Bicarbonate 26 mEq/L (21-32); Bilirubin Total 0.3 mg/dL (0.2-1.0); Globulin 4.1 g/dL (2.3-3.5); Glomerular Filtration Rate 70 ml/min (=/>90); Glucose Level 118 mg/dL (74-106); Magnesium 2.3 mg/dL (1.6-2.4); NT PRO-BNP 401 pg/mL (<125); Potassium 3.8 mEq/L (3.5-5.1); Protein, Total 7.5 g/dL (6.4-8.2); Sodium Level 140 mEq/L (136-145)
[2024-11-25 20:02] LABS: Bilirubin Direct < 0.2 mg/dL (0-0.2); Bilirubin Indirect, Calculated 0.1 mg/dL (0.2-0.8)
[2024-11-25] MEDS ORDERED: BACI/NEOMYCIN/POLY OINT 15GM TOP ONE (21:24)
[2024-11-25] MEDS: CLINDAMYCIN 900MG/D5W 900 MG/50 ML IVPB IV ONE (21:35)
[2024-11-25] MEDS: FUROSEMIDE 40 MG/4 ML VIAL IV ONE (21:50)
[2024-11-25] MEDS: CLINDAMYCIN 900MG/D5W 900 MG/50 ML IVPB IV SCH (21:50)
[2024-11-25 21:59] VITALS: BMI 23.6
[2024-11-25 22:41] LABS: Specific Gravity 1.006 (1.005-1.030); Urine Bilirubin NEGATIVE (Negative); Urine Blood Negative (Negative); Urine Clarity Clear (Clear); Urine Color Colorless (Yellow); Urine Glucose NEGATIVE (Negative); Urine Ketones NEGATIVE (Negative); Urine Microscopic Reflex YN NO UMIC; Urine Nitrite NEGATIVE (Negative); Urine Protein NEGATIVE (Negative); Urine Urobilinogen Normal (Normal); Urine pH 6.5 (5.0-7.0)
[2024-11-25] MEDS: MELATONIN 3 MG TABLET PO PRN (23:37)
[2024-11-26 00:07] LABS: Phosphorus 3.1 mg/dL (2.5-4.9)
[2024-11-26 00:12] LABS: Magnesium 2.2 mg/dL (1.6-2.4)
[2024-11-26 05:19] LABS: Absolute Basophils 0.1 K/uL (0-0.5); Absolute Eosinophils 0.2 K/uL (0-0.5); Absolute Lymphocytes (CBC) 1.4 K/uL (0.7-4.9); Absolute Monocytes 0.7 K/uL (0.1-1.3); Eosinophils % 2.3 % (0-4.4); Hematocrit 42.4 % (39.6-49.0); Hemoglobin 14.1 g/dL (13.6-17.9); Lymphocytes % 19.1 % (15.3-44.8); MCH 30.7 pg (27.0-35.0); MCHC 33.2 g/dL (32.0-36.0); MCV 92.4 fL (80-100); MPV 8.6 fL (7.6-11.3); Monocytes % 9.8 % (3.3-12.3); Neutrophils % 67.8 % (41.7-73.7); Platelets 218 thou/uL (152-406); RBC Red Blood Cell Count 4.59 M/uL (4.33-5.43); Red Cell Distribution Width 13.3 % (12.1-15.2)
[2024-11-26 05:36] LABS: Anion Gap 7.9 mEq/L (5.0-15.0); Potassium 3.9 mEq/L (3.5-5.1)
--- NOTE | 2024-11-26 07:05 | P.PN ---
Date of Service: 11/26/24 Subjective: Oriented x1-2. Intermittently confused. Attempting to get out of bed multiple times reports some intermittent weeping from blisters at home mild left foot discomfort afebrile ROS: 10 point ROS as noted above, otherwise negative Physical Exam: GEN: Alert, orientedx1-2, NAD CV: Regular rate and rhythm, bilateral lower extremity edema L > R Pulm: Nonlabored respirations on room air, clear bilaterally ABD: soft, nontender, nondistended Integumentary: Erythema, Swelling of lower left extremity from ankle down; small weeping blisters Neuro: left facial droop, hard of hearing Problem List: Acute lower left extremity cellulitis Chronic venous insufficiency / Chronic venous stasis dermatitis Hx CAD s/p PCI Chronic diastolic CHF Alzheimer's Dementia Hypertension Acute lower left extremity cellulitis Chronic venous insufficiency / Chronic venous stasis dermatitis presents with worsening left lower extremity erythema, swelling from ankle down. Reports intermittent weeping from blisters. Denies fevers/chills. Reports he was previously on Doxycycline but ran out; per chart given 1 month prescription (10/11-11/10) given IV levaquin, vanc, cefazolin in ED s/p IV lasix x1 40 mg overnight continue clindamycin (11/25-) Dr. Vides, general surgeon consulted Follow blood cultures labs unremarkable. UA negative. Sees Dr. Vides at [facility]. continue local wound care [facility] consult Hx CAD s/p PCI Chronic diastolic CHF Alzheimer's Dementia Hypertension confirm home meds, restarts as appropriate resume home metoprolol, donepezil, melatonin. VTE: Lovenox Code: Full Dispo: home 2-3 days pending surgery recs Time Spent Managing Pts Care (In Minutes): 55
[2024-11-26] MEDS: POTASSIUM CL SA 10 MEQ TAB PO ONE (08:20)
[2024-11-26] MEDS: DONEPEZIL HCL 5 MG TAB PO SCH (08:20)
[2024-11-26] MEDS: ENOXAPARIN 40 MG/0.4 ML SQ SCH (08:20)
[2024-11-26] MEDS: METOPROLOL TAR 25 MG TAB PO SCH (08:21)
--- NOTE | 2024-11-26 12:41 | EKG ---
Test Date: 2024-11-25 Test Time: 19:50:05 Surgical Manager: HARLEY MEASUREMENT RESULTS: Intervals: Rate: 61 CA: 156 QRSD: 136 QT: 436 QTc: 438 [place]: P: 55 CA: 156 QRS: 129 T: 43 INTERPRETIVE STATEMENTS: Normal sinus rhythm with sinus arrhythmia Right bundle branch block Abnormal ECG Compared to ECG 09/21/2024 21:31:36 No significant changes Electronically Signed On 11-26-24 12:39:29 SOCIAL AND POLITICAL STUDIES PROFESSOR by James Tucker
--- NOTE | 2024-11-26 19:38 | CON ---
Date of Consultation: 11/26/2024 Diagnosis: Bilateral lower extremity cellulitis. History Of Present Illness: This is a case of a 74-year-old patient, known by us in the [facility] due to history of venous stasis disease and venous stasis ulcer. He came to us with a diagn osis of bilateral lower extremity cellulitis and swelling and a surgical consult was obtained. Since he was admitted in the last 24 hours, he has seen excellent improvement with swelling of his legs co maria e down with no Homans signs. No calf tenderness. No more drainage coming from the skin itself ne ither. He gauze today is dry. No dysuria, hematuria, hematochezia, melena. No recent traveling out of the country. No family member sick at home. No fevers or chills. Allergies: PENICILLIN. Medications: Aricept and Lopressor. Past Medical History: Medical problems include Alzheimer, hypertension, and history of RI. Social History: He does not smoke. He does not drink alcohol. Family History: Noncontributory. Physical Examination: Vital Signs: Reviewed. General: The patient is awake, alert. No distress. Chest: Clear. Abdomen: Soft and depressible. Extremities: Good capillary refill. There are what look like changes from venous stasis disease. T he swelling in his legs are lot less than what we had seen in the past. The areas that were oozing b efore are not anymore. They are dry on today's gauze. The redness is minimal with no fluctuance see n. No crepitus. Dorsalis pedis pulses diminished, but are still present. Laboratory Data: Blood work shows WBC count 7.3 with hemoglobin of 14.1 and INR 1.06. Venous Dopple r shows no deep vein thrombosis. Assessment: A 74-year-old patient with a history of cellulitis and venous stasis disease. At this m oment, it looks better. He feels better. There is no pain. No calf tenderness. No Homans signs. No fluctuance seen. No crepitus. No surgical intervention. Plan: When he goes home, he can follow up in our [facility] or our office in a week from n ow. TAMMIE/MARIO Voice ID: [id number] Report ID: [id number]
[2024-11-27 07:30] LABS: Anion Gap 6.8 mEq/L (5.0-15.0); Magnesium 2.3 mg/dL (1.6-2.4); Potassium 3.8 mEq/L (3.5-5.1)
[2024-11-27 08:08] LABS: Absolute Basophils 0.1 K/uL (0-0.5); Absolute Eosinophils 0.2 K/uL (0-0.5); Absolute Lymphocytes (CBC) 1.9 K/uL (0.7-4.9); Absolute Monocytes 0.7 K/uL (0.1-1.3); Absolute Neutrophil 4.3 K/uL (1.8-8.0); Eosinophils % 2.8 % (0-4.4); Hematocrit 43.8 % (39.6-49.0); Hemoglobin 14.4 g/dL (13.6-17.9); Lymphocytes % 26.1 % (15.3-44.8); MCH 30.7 pg (27.0-35.0); MCHC 32.8 g/dL (32.0-36.0); MCV 93.4 fL (80-100); Monocytes % 9.6 % (3.3-12.3); Neutrophils % 60.5 % (41.7-73.7); Platelets 228 thou/uL (152-406); RBC Red Blood Cell Count 4.69 M/uL (4.33-5.43); Red Cell Distribution Width 13.6 % (12.1-15.2)
[2024-11-27] MEDS: POTASSIUM 25 MEQ EFFERV TAB PO ONE (08:58)
--- NOTE | 2024-11-27 10:04 | P.PN ---
Date of Service: 11/27/24 Subjective: lower extremity erythema, swelling improving no acute events overnight doesn't feel worse afebrile ROS: 10 point ROS as noted above, otherwise negative Physical Exam: GEN: Alert, orientedx1-2, NAD CV: Regular rate and rhythm, bilateral lower extremity edema L > R Pulm: Nonlabored respirations on room air, clear bilaterally ABD: soft, nontender, nondistended Integumentary: mild erythema, swelling of lower left extremity from ankle down; less Erythematous and covering less area today Neuro: left facial droop, hard of hearing Problem List: Acute lower left extremity cellulitis Chronic venous insufficiency / Chronic venous stasis dermatitis Hx CAD s/p PCI Chronic diastolic CHF Alzheimer's Dementia Hypertension Acute lower left extremity cellulitis Chronic venous insufficiency / Chronic venous stasis dermatitis presents with worsening left lower extremity erythema, swelling from ankle down. Reports intermittent weeping from blisters. Denies fevers/chills. Reports he was previously on Doxycycline but ran out; per chart given 1 month prescription (10/11-11/10) s/p IV lasix x1 40 mg overnight continue clindamycin (1/2-) Follow blood cultures - NGTD labs unremarkable. UA negative. C consulted. Continue local wound care Dr. Vides, general surgeon consulted. Recommended medical management, wound care. f/u in office 1 week at wound healing center Erythema, swelling improving Hx CAD s/p PCI Chronic diastolic CHF Alzheimer's Dementia Hypertension confirm home meds, restarts as appropriate resume home metoprolol, donepezil, melatonin. VTE: Lovenox Code: Full Dispo: home 1 day Time Spent Managing Pts Care (In Minutes): 55
--- NOTE | 2024-11-27 14:50 | PN ---
Date of Progress Note: 11/27/2024 Diagnosis: Bilateral lower extremity cellulitis. Subjective: The patient is doing better. Swelling is better. The wounds are epithelialized. No mo re drainage. No fever. No shortness of breath. No chest pain. Review of Systems: 10 points otherwise unremarkable. Physical Examination: Vital Signs: Reviewed. Chest: Clear. Abdomen: Soft and depressible. Extremities: Good capillary refill. No calf tenderness. Erythema is resolved. The patient had mil d compression socks on him. Plan: Follow up at the office when he gets discharged. We discussed once again the changes in his l lulu he should do to deal with venous stasis disease including activities and diet. TAMMIE/MODL Voice ID: [id number] Report ID: [id number]
[2024-11-27 21:10] VITALS: O2SAT 97
[2024-11-28 09:08] LABS: Anion Gap 7.4 mEq/L (5.0-15.0); Potassium 4.4 mEq/L (3.5-5.1)
[2024-11-28 09:29] VITALS: BP 135/74; TEMP 98.6
== END 2024-11-28 12:04 | disposition home or self-care (01) | DRG 603 ==
LOC: ER 17:47 → 2ND 19:24
PROVIDERS: ADMIT Internal Medicine; ATTEND Hospitalist
DX: L03.116 Cellulitis of left lower limb (principal); I50.32 Chronic diastolic (congestive) heart failure; I11.0 Hypertensive heart disease with heart failure; L03.115 Cellulitis of right lower limb; E66.9 Obesity, unspecified; I87.8 Other specified disorders of veins; I87.2 Venous insufficiency (chronic) (peripheral); I25.2 Old myocardial infarction; G30.9 Alzheimer's disease, unspecified; F02.80 Dementia in other diseases classified elsewhere, unspecified severity, without behavioral disturbance, psychotic disturbance, mood disturbance, and anxiety; I25.10 Atherosclerotic heart disease of native coronary artery without angina pectoris; R29.810 Facial weakness; Z88.0 Allergy status to penicillin; Z68.23 Body mass index [BMI] 23.0-23.9, adult; Z79.899 Other long term (current) drug therapy
CPT/HCPCS: 36415; 71045; 80048; 80061; 80076; 81003; 82550; 83605; 83735; 83880; 84100; 84484; 85025; 85610; 87040; 93005; 93970; 96365; 96367; 96372; 96375; 99285; J1650; J1940; J7040; J7050